=== PATIENT | female | born 1960 | race Caucasian/White ===

== ENCOUNTER 2017-08-19 12:49 | Inpatient (IN) | payer MEDICARE, MEDICAID ==
[~2017-08-19] VITALS: Ht 157.5 cm; Wt 72.6 kg
[~2017-08-19 12:49] MED LIST: ALTACE10 MG PO; ASA5UEC; ASPIR 8181 MG PO; ATORVASTATIN CA40 MG PO; CARVEDILOL12.5 MG PO; CEFUROXIME500 MG PO; COREG25 MG PO; DEPAKOTE ER500 MG PO; EFFIENT10 MG PO; FIORICET 50-321 EACH; FOLIC ACID1 MG PO; HEADACHE MEDICATION; HYDROCHLOROTHIA25 M1 PO; I COOL PO; IBUPROFEN 800800 M1 PO; KLOR-CON 1010 MEQ; LASIX 20 MG TAB20 MG PO; NICOTINE TRANSD21 M1; NITROSTAT0.4 M1 SL; NORCO 5-325 TA1 EACH PO; NORVASC 5 MG TAB5 MG; PAXIL20 MG; PLAVIX 75 MG TA75 M1 PO; PLAVIX 75 MG TA75 MG; THIAMINE HCL100 MG PO; TRAZODONE HCL100 MG; TRAZODONE HCL50 MG PO; TRINATE TABLET1 TAB PO; TYLENOL325 MG PO; VERAPAMIL HCL40 MG; ZANTAC 150MG T150 MG PO; ZESTRIL20 MG; ZOLOFT50 MG PO
[2017-08-19 12:58] VITALS: BP 232/147
[2017-08-19] MEDS ORDERED: MAGOX 400400 MG PO (13:04)
[2017-08-19 13:34] LABS: HEMATOCRIT 53.2 % (37.0-47.0); HEMOGLOBIN 18.1 gm/dL (12.0-15.0); MCH 30.2 pg (26.0-34.0); MPV 8.2 fl. (7.2-11.1); NUCLEATED RBCS 0 /100WBC; PLATELET COUNT* 249 thou/uL (150-400); RBC 5.97 mil/uL (4.20-5.00); RDW-CV 14.1 % (10.5-14.5); WBC 13.4 thou/uL (4.0-11.0)
[2017-08-19 13:59] LABS: ABSOLUTE LYMPHOCYTES 1.5 thou/uL (0.8-5.3); ABSOLUTE MONOCYTES 0.9 thou/uL (0.0-1.2); ATYPICAL LYMPHS 3 %; PLATELET ESTIMATE ADEQUATE
[2017-08-19 14:07] LABS: URINE BLOOD 3+ (Negative); URINE CLARITY CLEAR; URINE COLOR YELLOW; URINE GLUCOSE-RANDOM NEGATIVE (Negative); URINE LEUKOCYTES-REFLEX TRACE (Negative); URINE NITRITE-REFLEX NEGATIVE (Negative); URINE PROTEIN 3+ (Negative); URINE SPECIFIC GRAVITY >= 1.030 (1.005-1.030); URINE UROBILINOGEN 0.2 E.U./dl (0.2-1.0)
[2017-08-19 14:12] LABS: APTT 35.5 Seconds (25.0-31.3); INR 1.1; PROTIME 10.5 Seconds (9.20-11.50)
[2017-08-19 14:12] LABS: ICTOTEST (BILI CONFIRMATORY) Negative (Negative); URINE BILIRUBIN 2+ (Negative); URINE KETONES 3+ (Negative); URINE REDUCING SUBSTANCE NEGATIVE (Negative)
[2017-08-19 14:19] LABS: AMP/METHAMP Negative (Negative); BARBITURATES Negative (Negative); BENZODIAZEPINES Negative (Negative); COCAINE Negative (Negative); METHADONE Negative (Negative); OPIATES Negative (Negative); PCP Negative (Negative); THC Negative (Negative)
[2017-08-19 14:20] LABS: SQUAMOUS >10 Many /LPF (0-3)
[2017-08-19 14:22] LABS: CRYSTALS None Seen /LPF (None Seen); HYALINE CASTS 0-3 Few /LPF (None Seen); MUCUS 0-3 Light strn/LPF (None Seen); URINE RBC 3-10 Few /HPF (0-2); URINE WBC-REFLEX 6-15 Few /HPF (0-5)
[2017-08-19 14:25] LABS: ANION GAP 12 mmol/L (7-16); BUN 8 mg/dL (7-18); CALCIUM 9.6 mg/dL (8.5-10.1); CHLORIDE 83 mmol/L (98-107); CO2 28 mmol/L (21-32); CREATININE 0.7 mg/dL (0.6-1.3); GLUCOSE 177 mg/dL (70-99); POTASSIUM 3.4 mmol/L (3.5-5.1); SODIUM 123 mmol/L (136-145)
[2017-08-19 14:37] LABS: ALBUMIN 3.8 g/dL (3.4-5.0); ALKALINE PHOSPHATASE 203 U/L (46-116); LIPASE 1036 U/L (73-393); NT-PRO BRAIN NAT PEPTIDE 4263 pg/mL (<300); SGOT 58 U/L (15-37); SGPT 55 U/L (30-65); TOTAL BILIRUBIN 1.6 mg/dL (<0.1-1.0); TOTAL PROTEIN 8.4 g/dL (6.4-8.2); TROPONIN-I LEVEL <0.06 ng/mL (<0.06)
[2017-08-19 16:58] VITALS: BP 141/83
[2017-08-19 17:18] VITALS: BP 158/90
--- NOTE | 2017-08-19 17:41 | NUR ---
PT ORIENTED TO ROOM AND UNIT. WILL CONTINUE TO ASSESS.
--- NOTE | 2017-08-19 18:57 | NUR ---
BEDSIDE REPORT GIVEN TO ISRAEL HU.
[2017-08-19 20:00] VITALS: BP 170/84
[2017-08-20] VITALS (11 sets, daily range): BP systolic 148–210; BP diastolic 70–125
[2017-08-20 04:30] LABS: MCH 29.9 pg (26.0-34.0); MCHC 33.9 g/dL (28.0-37.0); MCV 88.2 fL (80.0-100.0); MPV 8.7 fl. (7.2-11.1); RBC 5.1 mil/uL (4.20-5.00); WBC 14.3 thou/uL (4.0-11.0)
[2017-08-20 04:33] LABS: HEMOGLOBIN 15.3 gm/dL (12.0-15.0)
[2017-08-20 04:44] LABS: CALCIUM 8.8 mg/dL (8.5-10.1); CREATININE 0.6 mg/dL (0.6-1.3); MAGNESIUM 1.6 mg/dL (1.8-2.4); TOTAL BILIRUBIN 1.3 mg/dL (<0.1-1.0); TOTAL PROTEIN 7.1 g/dL (6.4-8.2)
--- NOTE | 2017-08-20 07:16 | NUR ---
PATIENT REQUESTING IV PAIN MEDS EVERY 3 HOURS, NORCO EVERY 2. ENCOURAGED TO ONLY SIP WATER. K LOW, ATTEMPTED IV BUT BURNED. TOOK 40 MEQ PO. GI CONSULT THIS AM.
--- NOTE | 2017-08-20 11:44 | NUR ---
PT REFUSING IV POTASSIUM STATS THAT IT IS TO PAINFUL TO GO THROUGH IV. REQUESTING PO POTASSIUM REPLACEMENT. INFORM DR. GAMBLE.
--- NOTE | 2017-08-20 13:23 | EKG ---
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: : 1960 Requested By: Cathi Santillan Order Number: [id number] Mae MD: Xavier Smyth Measurements Intervals [place] Rate: 115 P: 57 IA: 121 QRS: -16 QRSD: 92 T: 82 QT: 360 QTc: 498 Interpretive Statements Sinus tachycardia Probable left atrial enlargement Abnormal R-wave progression, early transition Left ventricular hypertrophy Cannot rule out anterior infarct age indeterminate Compared to ECG 09/21/2016 19:48:11 Left ventricular hypertrophy now present Q waves now present Sinus rhythm no longer present Electronically Signed On 08-20-2017 13:23:42 CDT by Xavier Smyth [email or web address] <ELECTRONICALLY SIGNED> By: Xavier Smyth MD, FACC 08/20/17 1323 1256 1256 Xavier Smyth MD, FACC /EPI
--- NOTE | 2017-08-20 17:52 | NUR ---
START 24 HOUR UNRINE COLLECTION AT 1439 TODAY. PT MISSED HAT FIRST TIEM SHE TRIED USWING.
--- NOTE | 2017-08-20 18:21 | NUR ---
PT HAVING HIGH BLOOD PRESSURE WHEN NAUSEATED AND IN PAIN FROM PANCREATITIS. HOWEVER AFTER PATIENT IS TREATED FOR PAIN AND NAUSEA SBP COMES DOWN TO THE 140S. ADDED LISINOPRIL PO AND CATAPRESS TRANSDERMAL PATCH TO HELP CONTROL BP. PT'S MOTHER STATED TO ME THAT SHE THAT PT MAY HAVE STARTED DRINKING AGAIN WHILE SHE LIVES WITH HER AND THAT SHE IS VERY SECRETIVE ABOUT IT. INFORM MOTHER THAT I COULD NOT GIVE HER ANY INFORMATION ABOUT THE PATIENT WITHOUT THE PATIENT'S CONSENT. WILL CONTINUE TO ASSESS.
--- NOTE | 2017-08-20 18:49 | NUR ---
TALKED TO DR. EDWARD ABOUT PT'S EVELVATED BLOOD PRESSURE AND HE HAS CONCERN FOR DROPPING PT'S BLOOD PRESSURE ALL AT ONE. INSTRUCTED TO GIVE PT ATIVAN AND START CIWA EVEN THOUGH PT STATES THAT SHE HAS NOT HAD A DRINK IN SEVERAL WEEKS. WILL GIVE ATIVAN PER DR. EDWARD INSTRUCTION.
[2017-08-20 19:26] LABS: CALCIUM 8.5 mg/dL (8.5-10.1); CREATININE 0.6 mg/dL (0.6-1.3); POTASSIUM 4.2 mmol/L (3.5-5.1)
--- NOTE | 2017-08-20 20:00 | NUR ---
RECIEVED REPORT AND ASSUMED CARE OF PATIENT AT 1930. 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 ASSESSMENT AND VITALS COMPLETED CHARTED, BLOOD PRESSURE ELEVATED IT HAS BEEN THROUGHOUT THE DAY. PATIENT HAS BP MEDICATIONS TO BE ADMINISTERED PER JUN. PATIENT HAS C/O PAIN RATED 8-10/10. MEDS PER MAR. GOAL IS BLOOD PRESSURE AND PAIN MANAGEMENT. CALL LIGHT WITHIN REACH
[2017-08-21] VITALS (8 sets, daily range): BP systolic 126–191; BP diastolic 78–105
[2017-08-21 03:14] LABS: HEMATOCRIT 42.4 % (37.0-47.0); HEMOGLOBIN 14.4 gm/dL (12.0-15.0); MCH 30.4 pg (26.0-34.0); MCHC 33.9 g/dL (28.0-37.0); MCV 89.5 fL (80.0-100.0); MPV 8.5 fl. (7.2-11.1); RBC 4.73 mil/uL (4.20-5.00); WBC 13.7 thou/uL (4.0-11.0)
[2017-08-21 03:33] LABS: CALCIUM 8.3 mg/dL (8.5-10.1); CREATININE 0.5 mg/dL (0.6-1.3); MAGNESIUM 1.5 mg/dL (1.8-2.4); POTASSIUM 3.9 mmol/L (3.5-5.1)
--- NOTE | 2017-08-21 05:21 | NUR ---
PATIENT NOT PROGRESSING TOWARDS GOALS: SODIUM IS STILL LOW AT 119, PHYSICIAN NOTIFIED AND ORDERS OBTAINED. 24 HOUR URINE COLLECTION STILL IN PLACE-ENDING AT 1430 TODAY (08/21). PATIENT'S BLOOD PRESSURE NOT WNL THROUGHOUT SHIFT DESPITE JASON AND PRN BLOOD PRESSURE MEDICATIONS. CIWA'S COMPLETED Q4H, IMPROVEMENT NOTED THROUGHOUT SHIFT WITH JASON LORAZEPAM. PATIENT HAD INCONTINENT EPISODE OF URINE THIS AM. BED BATH PROVIDED DUE TO PATIENT'S UNSTEADINESS. HOURLY ROUNDING OBSERVED. CALL LIGHT WITHIN REACH
[2017-08-21 08:24] LABS: CREATININE 0.4 mg/dL (0.6-1.3); POTASSIUM 3.9 mmol/L (3.5-5.1)
--- NOTE | 2017-08-21 12:00 | NUR ---
ATTEMPTED TO MEET WITH PT, SHE WAS SLEEPING. MOM AT BEDSIDE. PT KNOWN TO CM FROM PREVIOUS ADMITS. MOM STATED PT HAD DOING WELL AT HOME UNTIL 'THIS'. PT STILL LIVING WITH MOM. WILL SEE PT LATER WHEN AWAKE
[2017-08-21 13:10] LABS: CORTISOL AM 29.9 ug/dL (6.2-19.4)
--- NOTE | 2017-08-21 14:00 | NUR ---
VSS, ASSUMED CARE OF PT IN THE AM, ASSESSMENT PERFORMED AND CHARTED, FALL PRECAUTIONS IN PLACE AND CALL LIGHT IN REACH, PT IS IN BED SLEEPING TRACING SR/ST ON THE MONITOR SAO2 IS 96% ON RA AND SHE IS CONFUSED AND CAN BE IMPULSIVE AT TIME, PT IS UP WITH STAND BY, PT DENIES ANY PAIN AND HER GOAL IS TO IMPROVE NA+ LABS AND IMPROVE MENTATION, WILL FOLLOW WITH PLAN OF CARE.
[2017-08-21 14:11] LABS: HEPATITIS B SURFACE AG Negative (Negative)
--- NOTE | 2017-08-21 14:43 | 2DMMODE ---
[place] [address] 2 D/M-MODE ECHOCARDIOGRAM Name: JAK MCCARTNEY Room: [address] IN .R.#: [id number] Admission: 08/19/17 Attend Phys: Kang Benjamin Discharge: Date of : 64 Date of Service: 08/21/17 1443 Report #: [id number] THIS REPORT FOR: //name// APPROVED REPORT Study performed: 08/21/2017 11:08:11 EXAM: Comprehensive 2D, Doppler, and color-flow Echocardiogram Patient Location: Bedside BSA: 1.68 HR: 98 bpm BP: 126/80 mmHg Other Information Study Quality: Technically Limited Technically limited study due to uncooperative patient. Indications Chest Pain 2D Dimensions IVSd: 9.94 (7-11mm) LVOT Diam: 21.37 (18-24mm) LVDd: 46.38 mm PWd: 9.25 (7-11mm) Ascending Ao: 38.39 (22-36mm) LVDs: 32.63 (25-40mm) Aortic Root: 29.35 mm Volumes Left Atrial Volume (Systole) LA ESV Index: 31.20 mL/m2 Aortic Valve AoV Peak Kulwinder.: 1.15 m/s AO Peak Gr.: 5.32 mmHg LVOT Max P.83 mmHg AO Mean Gr.: 3.12 mmHg LVOT Mean P.31 mmHg LVOT Max V: 0.84 m/s AO V2 VTI: 16.83 cm LVOT Mean V: 0.52 m/s MELISSA (VTI): 3.35 cm2 LVOT V1 VTI: 15.74 cm Mitral Valve E/A Ratio: 0.86 MV Decel. Time: 169.90 ms MV E Max Kulwinder.: 0.86 m/[place] [address] 2 D/M-MODE ECHOCARDIOGRAM Name: JAK MCCARTNEY Room: [address] IN .R.#: [id number] Admission: 08/19/17 Attend Phys: Kang Benjamin Discharge: Date of : 64 Date of Service: 08/21/17 1443 Report #: [id number] MV PHT: 49.27 ms MVA (PHT): 4.47 cm2 TDI E/Lateral E': 14.33 E/Medial E': 12.29 Medial E' Kulwinder.: 0.07 m/s Lateral E' Kulwinder.: 0.06 m/s Pulmonary Valve PV Peak Kulwinder.: 1.04 m/s PV Peak Gr.: 4.33 mmHg Tricuspid Valve RAP Estimate: 5.00 mmHg TR Peak Gr.: 50.02 mmHg RVSP: 55.02 mmHg PA Pressure: 55.02 mmHg Left Ventricle The left ventricle is normal size. moderate hypokinesis noted of the distal anteroapical wall There is normal left ventricular wall thickness. Left ventricular systolic function is mildly decreased. A false tendon is noted. LVEF is 45-50%. Grade I - abnormal relaxation pattern. Right Ventricle The right ventricle is normal size. The right ventricular systolic function is normal. Atria Left atrium is mildly dilated. The right atrium size is normal. Aortic Valve The aortic valve is normal in structure. No aortic regurgitation is present. There is no aortic valvular stenosis. Mitral Valve The mitral valve is mildly thickened. Mild mitral regurgitation. No evidence of mitral valve stenosis. Tricuspid Valve The tricuspid valve is normal in structure. Trace to mild tricuspid regurgitation. estimated pa pressure 55 mm Hg Pulmonic Valve Pulmonic valve is not well visualized. Trace pulmonic [place] [address] 2 D/M-MODE ECHOCARDIOGRAM Name: JAK MCCARTNEY Room: [address]#: [id number] Admission: 08/19/17 Attend Phys: Kang Benjamin Discharge: Date of : 64 Date of Service: 08/21/17 1443 Report #: [id number] Great Vessels Aortic root is mildly dilated. IVC is not well visualized. Pericardium Trace pericardial effusion versus prominent fat pad. <Conclusion> moderate hypokinesis noted of the distal anteroapical wall LVEF is 45-50%. Left atrium is mildly dilated. Mild mitral regurgitation. Trace to mild tricuspid regurgitation. estimated pa pressure 55 mm Hg <ELECTRONICALLY SIGNED> By: Dale Morrison MD, FACC 08/21/17 1443 1443 1443 Dale Morrison MD, FACC /INF
[2017-08-21 16:02] LABS: TOTAL VOLUME 1150 mL
[2017-08-21 16:03] LABS: COLLECTION DURATION 24 Hours
--- NOTE | 2017-08-21 17:47 | CARDNUC ---
[place] [address] CARDIAC NUCLEAR IMAGING REPORT Name: JAK MCCARTNEY Room: [address] IN [facility]#: [id number] Admission: 08/19/17 Attend Phys: Kang Benjamin Discharge: Date of : 64 Date of Service: 08/21/17 1746 Report #: [id number] THIS REPORT FOR: //name// APPROVED REPORT Study performed: 08/20/2017 12:45:00 Exam: Nuclear Stress Test Indication: Chest pain Patient Location: In-Patient Room #: 232 Stress Tech: Danyelle Chavez Stress Nurse: Fidelia Gamez RN Ht: 5 ft 2 in Wt: 148 lbs BSA: 1.68 m2 BMI: 27.06 Medical History Medical History: CAD s/p AR, CAD s/p stent, Stroke/TIA, HTN, Hyperlipidemia, Smoking Medications: prasugrel, enoxaparin, atorvastatin, carvedilol, clonidine, hydralazine, labetalol, lisinopril, asa Allergies: No known drug allergies Cardiac Risk Factors: Age, Current Smoker, HTN, Hyperlipidemia, PVD Previous Cardiac Procedures: Myocardial infarction, PCI Exercise History: Sedentary Meds Held (24 hrs): labetalol Stress Test Details Stress Test: Pharmacologic stress testing performed using 0.4 mg of regadenoson per 5 mL given IV over 10 seconds. Reason for pharmacologic stress test: physical limitation. HR Resting HR: 98 bpm Max Heart Rate (APMHR): 165 bpm Max HR Achieved: 122 bpm Target HR (85% APMHR): 140 bpm % of APMHR: 73 Recovery HR: 110 bpm BP Resting BP: 151/99 mmHg Max BP: 111/69 [place] [address] CARDIAC NUCLEAR IMAGING REPORT Name: JAK MCCARTNEY Room: [address] IN [facility].#: [id number] Admission: 08/19/17 Attend Phys: Kang Benjamin Discharge: Date of : 64 Date of Service: 08/21/17 1746 Report #: [id number] Resting ECG: Sinus Rhythm Stress ECG: Sinus Tachycardia ST Change: Upsloping ST depression Maximum ST Deviation: 1 mm Arrhythmia: None Recovery ECG: Sinus Rhythm Recovery ST Change: Upsloping ST depression Recovery ST Deviation: 1 mm Recovery Arrhythmia: None Clinical Reason for Termination: Completed protocol Stress Symptoms: Dyspnea Exercise duration: 0 min sec Exercise capacity: 1.0 METs The patient had no chest discomfort with Lexiscan infusion. Nurse Comments Patient stated she got light headed and slightly SOB post lexiscan injection, resolved in recovery. Stress ECG Conclusion The baseline 12-lead elect cardiac gram showed sinus rhythm without significant ST or T wave abnormality. EKGs obtained during and post Lexiscan infusion show sinus rhythm and sinus tachycardia with [address] segment depression noted in the anterolateral leads. No stress-induced arrhythmias. NM EXAM: Myocardial Perfusion REST/STRESS Imaging Protocol: Rest Tc-99m/Stress Tc-99m 1 day Resting Data Rest SPECT myocardial perfusion imaging was performed in supine position 45 minutes following the intravenous injection of 11.6 mCi of Tc-99m Sestamibi. Time of rest injection: 809 Date: 08/21/2017 The images were gated to evaluate regional wall motion and calculate left ventricular ejection fraction. Administration Route: IV Administration Site: Left AC Pharmacologic Stress Pharmacologic stress test was performed by injecting Regadenoson 0.4 mg IV push followed by the intravenous injection of 35.6 mCi of Tc-99m Sestamibi. Time of stress injection: 1000 Date: 08/21/2017 [place] [address] CARDIAC NUCLEAR IMAGING REPORT Name: JAK MCCARTNEY Room: [address]#: [id number] Admission: 08/19/17 Attend Phys: Kang Benjamin Discharge: Date of : 64 Date of Service: 08/21/17 1746 Report #: [id number] Administration Route: IV Administration Site: Left AC Gated Stress SPECT was performed 45 minutes after stress injection. The images were gated to evaluate regional wall motion and calculate left ventricular ejection fraction. Study Quality Study: Good Artifact: No artifact Study Data At rest, the left ventricular ejection fraction was 45%.. Post stress, the left ventricular ejection was 44%.. Perfusion Myocardial perfusion images obtained at rest show a moderate size moderate to severe intensity defect involving the distal anterior and anteroapical wall. Perfusion images obtained post Lexiscan stress show a moderate sized severe intensity defect involving the mid to distal anterior wall and anteroapical wall. Findings are consistent with anteroapical infarct with moderate zone of taye-infarct ischemia. Wall Motion Gated images show akinesis of the mid to distal anterior anteroseptal and apical sims. Nuclear Conclusion ECG Findings: equivocal Clinical Findings: negative for ischemia Nuclear Findings: positive for ischemia Exercise Capacity: not assessed Left Ventricular Function: abnormal Risk Study: high Myocardial perfusion images show evidence of prior anteroapical infarct with a moderate region of taye-infarct ischemia. Left ventricular systolic function appears to be moderately decreased. This is a high risk study. <Conclusion> The baseline 12-lead elect cardiac gram showed sinus rhythm without significant ST or T wave abnormality. EKGs obtained during and post Lexiscan infusion show sinus rhythm and sinus tachycardia with 1 [place] [address] CARDIAC NUCLEAR IMAGING REPORT Name: JAK MCCARTNEY Room: [address] IN [facility].#: [id number] Admission: 08/19/17 Attend Phys: Kang Benjamin Discharge: Date of : 64 Date of Service: 08/21/17 1746 Report #: [id number] segment depression noted in the anterolateral leads. No stress-induced arrhythmias. <ELECTRONICALLY SIGNED> By: Xavier Smyth MD, FACC 08/21/17 1746 [id number] Xavier Smyth MD, FACC /INF
--- NOTE | 2017-08-21 22:31 | NUR ---
RECIEVED REPORT AND ASSUMED CARE OF PATIENT AT 1930. WOOL WASHER IN PLACE TRACING SR. ASSESSMENT AND VITALS COMPLETED CHARTED, VSS. PATIENT LETHARGIC, SLEEPING UPON ASSESSMENT. PATIENT IS CONFUSED AT TIMES. CIWA COMPLETED, REFER TO MAR. LORAZEPAM HELD DUE TO PATIENT'S MENTATION. PATIENT DENIES PAIN. GOAL IS PAIN CONTROL AND IMPROVEMENT OF MENTATION. WILL CONTINUE 500CC FLUID RESTRICTION AND INFUSION OF IVF TO IMPROVE NA+. CALL LIGHT WITHIN REACH
[2017-08-22 03:43] VITALS: BP 146/71
[2017-08-22 04:09] LABS: URINE SODIUM 105 (39-258); URINE SODIUM-mEq/L 91 mmol/L (Not Estab.)
--- NOTE | 2017-08-22 04:10 | NUR ---
PATIENT PARTIALLY PROGRESSING TOWARDS GOALS FOR THIS SHIFT: MENTATION UNIMPROVED DESPITE HOLDING PATIENT'S LORAZEPAM. PATIENT REMAINS LETHARGIC AND CONFUSED AT TIMES. PATIENT INCONTINENT AT TIMES WELL. PATIENT DENIES PAIN OR DISCOMFORT. AM LABS PENDING AT THIS TIME. PATIENT COMPLIANT WITH 500CC FLUID RESTRICTION. HOURLY ROUNDING OBSERVED. CALL LIGHT WITHIN REACH
[2017-08-22 04:44] LABS: HEMATOCRIT 35.6 % (37.0-47.0); MCH 30.4 pg (26.0-34.0); MCHC 34.2 g/dL (28.0-37.0); MCV 88.9 fL (80.0-100.0); MPV 8.8 fl. (7.2-11.1); RBC 4.01 mil/uL (4.20-5.00); RDW-CV 14.5 % (10.5-14.5); WBC 6.9 thou/uL (4.0-11.0)
[2017-08-22 04:52] LABS: HEMOGLOBIN 12.2 gm/dL (12.0-15.0)
[2017-08-22 05:02] LABS: ALBUMIN 2.2 g/dL (3.4-5.0); CALCIUM 7.8 mg/dL (8.5-10.1); CREATININE 0.4 mg/dL (0.6-1.3); TOTAL BILIRUBIN 0.6 mg/dL (<0.1-1.0)
[2017-08-22 08:30] VITALS: BP 147/90
--- NOTE | 2017-08-22 09:49 | CON ---
[facility] [address] [place] [address] CONSULTATION Name: JAK MCCARTNEY Room: [address] IN .R.#: [id number] Admission: 08/19/17 Attend Phys: Kang Lopez, Discharge: Date of : 64 Report #: [id number] THIS REPORT FOR: //name// CC: Dale Morrison MD [facility] PAT Lopez DICTATED BY: Armen Lisa MD DATE OF SERVICE: 08/20/2017 INDICATION: Chest pain and hypertension. HISTORY OF PRESENT ILLNESS: The patient is a 57-year-old white female with a history of coronary artery disease. She has had intervention on multiple occasions. Most recently in 11/2015, she had subtotal occlusion of the stent to her LAD with repeat intervention. She has stents in her LAD and right coronary artery. By noninvasive echocardiogram, her EF is 55%. She has no history of heart failure. Her cardiac risk factors include hypertension, dyslipidemia, and tobacco use. She was seen in the emergency room with complaints of nausea, vomiting, and discomfort, both in the abdomen and chest for several days in a row. Her initial troponin was less than 0.06. Subsequent troponin was less than 0.06. A 12-lead EKG shows sinus rhythm with ST elevation in the anterior leads, felt to be attributed to left ventricular hypertrophy. EKG did not appear significantly changed from primary EKGs. She has a history of a stroke in 08/2016, at which time she was found to have an occluded right middle cerebral artery. On the study. this apparently was chronic. PAST MEDICAL HISTORY: 1. Coronary artery disease with percutaneous coronary intervention to both, right coronary and left anterior descending coronary arteries. 2. History of alcohol-induced chronic pancreatitis. 3. Hypertension. 4. History of ischemic right middle cerebral artery stroke. 5. History of alcohol abuse. 6. Hyperlipidemia. 7. Hyponatremia. 8. Peripheral arterial disease. 9. Tobacco abuse. PAST SURGICAL HISTORY: [place] [address] CONSULTATION Name: JAK MCCARTNEY Room: [address] IN [facility].#: [id number] Admission: 08/19/17 Attend Phys: Kang Lopez, Discharge: Date of : 64 Report #: [id number] 1. Percutaneous coronary intervention. 2. Hysterectomy. FAMILY HISTORY: Noncontributory. SOCIAL HISTORY: The patient smokes a pack of cigarettes daily. She reports alcohol use in the past, none presently. PHYSICAL EXAMINATION: VITAL SIGNS: Blood pressure 183/107, pulse 103. GENERAL: This is white female who appears in slight discomfort. She is somewhat flushed. HEENT: Extraocular muscles intact. Mucous membranes are moist. NECK: Shows no jugular venous distention. I do not appreciate carotid bruit. CHEST: Reveals breath sounds to be decreased throughout without wheezes or rales. CARDIAC: Regular rhythm with gallop. I do not appreciate a murmur. ABDOMEN: Reveals normal bowel sounds. The abdomen is soft and tender without rebound. EXTREMITIES: Shows no edema. Peripheral pulses palpable. SKIN: Warm and dry. DATA: A 12-lead EKG shows sinus tachycardia with Q waves in the anteroseptal leads and persistent ST elevation in leads V1, V2, and V3. Troponin less than 0.06 on two separate occasions. Chest x-ray shows no acute cardiopulmonary abnormality. IMPRESSIONS AND RECOMMENDATIONS: 1. Atypical prolonged chest pain. The patient's enzymes thus far are unremarkable. I do not believe this represents an acute coronary syndrome. We would continue aspirin and Effient as outlined above. 2. Hypertension. The patient's blood pressure remains elevated. At this point in time, I would add carvedilol twice daily and titrate as needed. 3. Chest pain, etiology not clear. I would recommend stress testing. 4. History of pericardial effusion in the past. Repeating echocardiogram at this time. 5. Remote history of stroke, presently stable. 6. Hyperlipidemia. Continue current statin agent. 7. History of tobacco abuse. Recommend cessation. <ELECTRONICALLY SIGNED> By: Xavier Smyth MD, FACC 08/22/17 0949 [id number] Smyth MD, FACC /nt
--- NOTE | 2017-08-22 11:51 | NUR ---
ASSUMED CARE OF PT AT 0730. PT LYING IN BED, SLEEPING, LETHARGIC AND FLAT. PT A&0X4 , FORGETFUL AND CONFUSED AT TIMES. CIWA COMPLETED Q4H. REFER TO CHARTING. PT SCORED 2 THIS AM FOR MINOR HEADACHE. AM ATIVAN HELD. 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 ON RA SAT 95%. DENIES ANY SHORTNESS OF BREATH AT THIS TIME. PT SODIUM 125 TODAY- PT CONTINUES TO RECEIVE IVF AT 100ML/HR AND FLUID RESTRICTION IN PLACE. PT POTASSIUM THIS AM-3.0, POTASSIUM GIVEN PER JUN. PT ON CLEAR LIQUID DIET AT THIS TIME. PT UP WITH 1 SBA TO BATHROOM. PT GOAL FOR TODAY IS TO INCREASE ALERTNESS AND AWAKENESS, USE NON PHARMACOLOGICAL APPROACH FOR PAIN MGMT, REPLACE POTASSIUM PER ELECTROLYTE PROTOCOL, MONITOR CIWA AND MONITOR SODIUM LEVEL. AM ASSESSMENT CHARTED. MEDICATIONS PER JUN. PT REPOSITIONS SELF. HOURLY ROUNDING OBSERVED. BED IN LOW POSITION. BED ALARM IN PLACE. FALL PRECAUTIONS IN PLACE. CALL LIGHT WITHIN REACH. WILL CONTINUE PLAN OF CARE.
[2017-08-22 12:42] VITALS: BP 147/76
--- NOTE | 2017-08-22 14:07 | NUR ---
ATTEPTED TO MEET WITH PT AGAIN, SHE IS STILL VERY DROWSY AND NOT WANTING TO TALK. WILL TRY TOMORROW
--- NOTE | 2017-08-22 16:56 | NUR ---
NO ACUTE CHANGES THROUGHOUT SHIFT. REFER TO CHARTING. PT MORE ALERT AND AWAKE THROUGHOUT SHIFT. PT COMPLAINED OF PAIN TO HEAD AND BACK THIS AFTERNOON-TREATED WITH PRN HYDROCODONE WITH PARTIAL RELIEF. PT FAMILY AT BEDSIDE THROUGHOUT SHIFT. CIWA Q4H COMPLETED. PT SCORING BETWEEN 2-3 DUE TO HEADACHE. POTASSIUM BEING REPLACED PER JUN. IVF. FLUID RESTRICTION IN PLACE. MIRALAX GIVEN PER GI ORDERS UNKNOWN LAST BM. PT CONTINUES TO BE A&0X4, FORGERFUL AT TIMES. CONTINUES TO TRACE SR ON THE PARTS PULLER. ON RA SAT UPPER 90'S. DENIES ANY SHORTNESS OF BREATH. PT UP SBA TO BATHROOM- UNSTEADY AT TIMES. CARDIOLOGY SEEN PT TODAY AND SIGNED OFF. MEDICATIONS PER JUN. PT REPOSITIONS SELF. HOURLY ROUNDING OBSERVED. BED IN LOW POSITION. BED ALARM IN PLACE. FALL PRECAUTIONS IN PLACE. CALL LIGHT WITHIN REACH. WILL CONTINUE PLAN OF CARE.
[2017-08-22 17:14] VITALS: BP 147/83
[2017-08-22 20:00] VITALS: BP 150/87
[2017-08-22 23:55] VITALS: BP 136/81
[2017-08-23] VITALS (7 sets, daily range): BP systolic 129–158; BP diastolic 70–93
--- NOTE | 2017-08-23 03:25 | NUR ---
PATIENT RESTED IN BED, NO ACUTE CHANGES. PATIENT COMPLAINED OF PAIN OF HIP, ABDOMINAL, HEAD, CHEST. EKG DONE, SINUS, DOCTOR RUDOLPH NOTIFED OF CHEST PAIN, NO NEW ORDERS. PAIN WAS RETREATED WITH NORCO, PATIENT DID NOT SHOW SIGNS OF DISTRESS. PATIENT A AND O TIMES 4. FALL PRECAUTIONS IN PLACE, BED ALARM ON, CALL LIGHT WITHIN A REACH, HOURLY ROUNDING OBSERVED. VITALS UNDER CONTROL.
[2017-08-23 06:54] LABS: CREATININE 0.5 mg/dL (0.6-1.3); POTASSIUM 3.8 mmol/L (3.5-5.1)
--- NOTE | 2017-08-23 06:59 | NUR ---
DOCTOR GALDAMEZ NOTIFED OF PATIENT CHEST PAIN, POST PAIN MED. THE DOCTOR ORDER, A TROP AND NITRO PRN.
--- NOTE | 2017-08-23 11:10 | EKG ---
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1960 Requested By: Kang Lopez Order Number: [id number] Mae MD: Dale Morrison Measurements Intervals [place] Rate: 81 P: 2 MD: 122 QRS: -19 QRSD: 91 T: 74 QT: 407 QTc: 473 Interpretive Statements Sinus rhythm Ventricular premature complex Probable left atrial enlargement Left ventricular hypertrophy Anterior infarct, old Baseline wander in lead(s) I,aVL,V5,V6 Compared to ECG 08/19/2017 12:56:52 Ventricular premature complex(es) now present Sinus tachycardia no longer present Myocardial infarct finding still present Electronically Signed On 08-23-2017 11:10:21 CDT by Dale Morrison [email or web address] <ELECTRONICALLY SIGNED> By: Dale Morrison MD, [facility] 08/23/17 1110 53 53 Dale Morrison MD, [facility] /EPI
--- NOTE | 2017-08-23 11:43 | NUR ---
CONTINUE TO FOLLOW, MET WITH PT. SHE IS STILL VERY DROWSY. STATED SHE HAD HAD A RELASPE WITH 'DRINKING.' SHE STATED SHE WAS ABLE TO QUIT ON HER OWN AFTER LAST HOSPTIAL STAY AND HOPES TO DO THE SAME. PT OPEN TO RESOURCES, WILL PROVIDE AND DISCUSS WHEN PT MORE ALERT.
--- NOTE | 2017-08-23 18:38 | NUR ---
ASSUMED PT CARE AT 0730, FULL ASSESMENT DONE CHARTED. PT VERY DROWSY THIS AM, C/O PAIN IN BACK. PAIN MEDS GIVEN PER JUN. PT TOLERATED FULL LIQUIDS FOR LUNCH WELL, PT ADVANCED TO REG DIET FOR DINNER. HAD LOOSE STOOL AFTER RECIEVING MIRALAX TODAY. PTS VSS, SR ON THE MONITOR. FALL PRECATUIONS IN PLACE. CALL LIGHT IN REACH. WILL CONTIUE WITH PLAN OF CARE
[2017-08-24 04:27] VITALS: BP 159/96
--- NOTE | 2017-08-24 05:36 | NUR ---
PATIENT RESTED IN BED. PATIENT SHOW SIGNS OF NAUSEA, PATIENT VOMIT SMALL AMOUNT. PATIENT HAD MUTIPLE LOOSE STOOLS, PATIENT IS NPO FOR TESTING. PATIENT IS STABLE, VITALS ARE ALSO STABLE. FALL PRECAUTIONS IN PLACE, BED ALARM ON, CALL LIGHT WITHIN REACH.
--- NOTE | 2017-08-24 05:43 | NUR ---
PATIENT RESTED IN BED, NO ACUTE CHANGES. PATIENT DID NOT SHOW SIGNS OF DISTRESS. FALL PRECAUTIONS IN BED, BED ALARM ON, HOURLY ROUNDING OBSERVED.
[2017-08-24 07:53] VITALS: BP 176/111
--- NOTE | 2017-08-24 09:27 | NUR ---
ASSUMED CARE OF PT THIS AM AROUND 0715- PAYROLL PROFESSIONAL IN PLACE ORDERED, TRACING SR- UPON ASSESSMENT PT NOTED TO BE RESTING IN BED, EYES CLOSED- PT ARROUSABLE BUT GROGGY AT TIMES- A&O X3- CONTINENT OF BOWEL AND BLADDER- ASSIST X1 WITH TRANSFERS- DIMINISHED LUNG SOUNDS NOTED, RESP EVEN AND UN-LABORED- BP ELEVATED THIS AM WITH SCHEDULED LISINOPRIL AND COREG GIVEN INDICATED, O2 SAT 92% ON RA-ABDOMEN SOFT/ROUND/NON-TENDER THIS AM, BS X4 AUADS- PT REPORTS BM THIS AM- IV NOTED TO LEFT WRIST INTACT AND SL- PT UP TO BED SIDE CHAIR THIS AM WITH BREAKFAST, GOOD PO INTAKE NOTED- CIWA Q 4 THIS SHIFT INDICATED, NOTED TO BE 1 THIS AM FOR REPORTS OF ANXIETY PER PT- PT REPORTS THAT SHE FEELS LIKE HER SKIN IS TRYING TO CRAWL OUT- PRN ATIVAN PO GIVEN THIS AM AT 0845- CALL LIGHT AND PERSONAL BELONGINGS WITH IN REACH- HOURLY ROUNDS IN PLACE R/T SAFETY/NEEDS- ALL NEEDS MET AT THIS TIME-WCTM
[2017-08-24 11:56] VITALS: BP 155/96
[2017-08-24 14:16] VITALS: BP 155/96
[2017-08-24] MEDS ORDERED: MIRALAX17 GM PO (14:21)
--- NOTE | 2017-08-24 15:01 | NUR ---
SW provided alcohol and drug resources referral list as well as emotional resources. Pt ready to dc home today; no other dc needs expressed.
--- NOTE | 2017-08-24 15:04 | NUR ---
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
--- NOTE | 2017-08-25 12:58 | NUR ---
PT. DISCHARGED TO HOME PRIOR TO O.T. EVAL. SHE DECLINED O.T. EVAL ON 08/24. PLEASE ORDER FURTHER O.T. SERVICES IF NEEDED.
[2017-08-28 18:06] LABS: URINE CORTISONE 424 ug/L (Undefined); URINE FREE CORTISOL 488 ug/24 hr (0-50)
--- NOTE | 2017-09-01 13:09 | CON ---
[facility] [address] [place] [address] CONSULTATION Name: JAK MCCARTNEY Room: [address]R.#: [id number] Admission: 08/19/17 Attend Phys: Kang Lopez, Discharge: 08/24/17 Date of : 64 Report #: [id number] THIS REPORT FOR: //name// CC: Nicolasa Lopez DATE OF SERVICE: 08/20/2017 REQUESTING PHYSICIAN: Dr. Kang Lopez. REASON FOR CONSULT: Abdominal pain, elevated lipase and transaminitis. HISTORY OF PRESENT ILLNESS: This is a 57-year-old female who is well known to us as she has had hospitalization in the past with alcoholic pancreatitis. The patient presents with diffuse abdominal pain, nausea, and symptoms of vomiting. She reports that she has been abstinent from alcohol for a while, but she relapsed couple of months ago and she drank heavily until 3 weeks ago. She once again stopped drinking. On presentation, she was found to have mild elevation of lipase to 700 to 1036. Her AST was also elevated with AST to ALT ratio of 1.5 to 1. Imaging studies suggest possible gallbladder sludge without any evidence of cholecystitis. The common bile duct is 4-5 mm in size and free of any stones or filling defects. PAST MEDICAL HISTORY: Significant for history of coronary artery disease status post DE, hypertension, dyslipidemia, depression, chronic migraines, hysterectomy, and GERD. ALLERGIES: The patient does not have any known drug allergy. MEDICATIONS: Please refer to hospital [facility]. SOCIAL HISTORY: The patient had a long history of alcoholism and reports that she relapsed and drank again heavily for the month, but she has stopped again for the last 3 weeks. The patient also admits to smoking half pack of cigarettes per day. FAMILY HISTORY: Noncontributory. PHYSICAL EXAMINATION: VITAL SIGNS: Reveals blood pressure of 183/107, respiration is 17, pulse 103, temperature 97.9. LUNGS: Clear. CARDIOVASCULAR: Regular. ABDOMEN: Soft, tender to palpation in all 4 quadrants[place] [address] CONSULTATION Name: JAK MCCARTNEY Room: [address]#: [id number] Admission: 08/19/17 Attend Phys: Kang Lopez, Discharge: 08/24/17 Date of : 64 Report #: [id number]. NEUROLOGIC: The patient is alert and oriented x 3. LABORATORY DATA: Revealed sodium of 121, potassium is 3.0, BUN is 6, chloride 82, creatinine 0.6, glucose 162. Lipase 795, down from 1036. Total bilirubin is 1.3 alkaline phosphatase 167, ALT is 42 and AST is 47. INR 1.1. WBC is 14.3 with hemoglobin of 15.3 and platelet of 203. IMAGING: As discussed above. ASSESSMENT AND PLAN: The patient with history of recurrent alcoholic pancreatitis, who also has electrolyte disturbance and extremely low sodium and potassium chloride. We will go ahead and put her on water restriction of 1200 mL. Also, slowly replace her sodium with the rate of 100 mL an hour with 20 of K. Meanwhile, we will continue monitoring lipase and labs. <ELECTRONICALLY SIGNED> By: Stephanie Meraz MD 09/01/17 1309 1129 [id number] Meraz MD /nt
== END 2017-08-24 15:10 | disposition home or self-care (01) | DRG 438 ==
LOC: M.ERS 12:49 → M.TBA-ER 15:36 → M.2W 15:36
PROVIDERS: Internal Medicine; Personal Emergency Response Attendant; ADMIT Family Medicine
DX: K85.90 Acute pancreatitis without necrosis or infection, unspecified (principal); R65.11 Systemic inflammatory response syndrome (SIRS) of non-infectious origin with acute organ dysfunction; N39.0 Urinary tract infection, site not specified; E87.1 Hypo-osmolality and hyponatremia; E44.0 Moderate protein-calorie malnutrition; I42.9 Cardiomyopathy, unspecified; R63.1 Polydipsia; I16.0 Hypertensive urgency; I25.10 Atherosclerotic heart disease of native coronary artery without angina pectoris; I10 Essential (primary) hypertension; E78.00 Pure hypercholesterolemia, unspecified; F32.9 Major depressive disorder, single episode, unspecified; G43.809 Other migraine, not intractable, without status migrainosus; F17.210 Nicotine dependence, cigarettes, uncomplicated; E78.5 Hyperlipidemia, unspecified; K21.9 Gastro-esophageal reflux disease without esophagitis; I73.9 Peripheral vascular disease, unspecified; E87.6 Hypokalemia; E83.42 Hypomagnesemia; F10.10 Alcohol abuse, uncomplicated; I25.2 Old myocardial infarction; Z90.710 Acquired absence of both cervix and uterus; Z79.899 Other long term (current) drug therapy; Z79.82 Long term (current) use of aspirin; Z86.73 Personal history of transient ischemic attack (TIA), and cerebral infarction without residual deficits; Z68.29 Body mass index [BMI] 29.0-29.9, adult

== ENCOUNTER 2019-04-24 16:34 | Inpatient (IN) | payer MEDICARE, MEDICAID ==
[~2019-04-24] VITALS: Ht 157.5 cm; Wt 47.6 kg
[~2019-04-24 16:34] MED LIST changes: -ATORVASTATIN CA40 MG PO; +LIPITOR40 MG PO; +MAGOX 400400 MG PO; +MIRALAX17 GM PO; +SERTRALINE HCL50 MG PO; -THIAMINE HCL100 MG PO; +VITAMINE B-1100 MG PO; -ZOLOFT50 MG PO
--- NOTE | 2019-04-24 16:50 | NUR ---
RT AT BEDSIDE APPLYING BIPAP TO PT.
--- NOTE | 2019-04-24 16:56 | NUR ---
PT TOLERATING BIPAP WELL.
[2019-04-24 17:26] LABS: ABSOLUTE BASOPHILS 0.1 thou/uL (0.0-0.2); ABSOLUTE LYMPHOCYTES 1.8 thou/uL (0.8-5.3); ABSOLUTE MONOCYTES 1.4 thou/uL (0.0-1.2); ABSOLUTE NEUTROPHILS 5.5 thou/uL (1.6-8.1); BASOPHILS 1.2 %; EOSINOPHILS 0.1 %; HEMATOCRIT 51.8 % (37.0-47.0); HEMOGLOBIN 16.7 gm/dL (12.0-15.0); LYMPHOCYTES 20.2 %; MCH 24.7 pg (26.0-34.0); MCHC 32.2 g/dL (28.0-37.0); MCV 76.8 fL (80.0-100.0); MONOCYTES 16.1 %; MPV 8.2 fl. (7.2-11.1); NUCLEATED RBCS 0 /100WBC; POLYS 62.4 %; RBC 6.74 mil/uL (4.20-5.00); RDW-CV 17.7 % (10.5-14.5); WBC 8.8 thou/uL (4.0-11.0)
[2019-04-24 17:29] LABS: CALCIUM 8.9 mg/dL (8.5-10.1); CREATININE 1.1 mg/dL (0.6-1.3); POTASSIUM 3.6 mmol/L (3.5-5.1)
[2019-04-24 17:39] LABS: ALBUMIN 3.3 g/dL (3.4-5.0); TOTAL BILIRUBIN 2.1 mg/dL (<0.1-1.0); TOTAL PROTEIN 8.6 g/dL (6.4-8.2)
[2019-04-24 17:42] LABS: APTT 26.2 Seconds (25.0-31.3); INR 1.3; PROTIME 13.2 Seconds (9.20-11.50)
[2019-04-24 17:48] LABS: LARGE PLATELETS OCCASIONAL; PLATELET ESTIMATE ADEQUATE
[2019-04-24 17:49] LABS: CLUMPED PLTS FEW; PLATELET COUNT* 282 thou/uL (150-400)
--- NOTE | 2019-04-24 19:02 | NUR ---
REPORT GIVEN TO MAYTE BROWN WHO IS TO ASSUME PT CARE.
[2019-04-24 20:18] LABS: BE -2.6 mmol/L (-2 to +3); PO2 94.9 mmHg (75.0-100.0); pH 7.353 (7.340-7.450)
[2019-04-24 22:15] VITALS: BP 137/84
[2019-04-25] VITALS (74 sets, daily range): BP systolic 119–215; BP diastolic 62–146
[2019-04-25 03:17] LABS: BE -3.8 mmol/L (-2 to +3); PCO2 42.7 mmHg (35.0-45.0); PO2 81.4 mmHg (75.0-100.0)
[2019-04-25 06:03] LABS: GLUCOSE 138 mg/dL (70-99)
--- NOTE | 2019-04-25 06:36 | NUR ---
TOOK OVER CARE OF PATIENT FROM MAYTE GLEZ AT 0130. PATIENT HAS BEEN ON BIPAP ALL SHIFT AND REMAINS AGITATED AND PULLING AT LINES. PATIENT IS ONLY CALM ONCE ATIVAN ORDER IS ADMINISTERED TO THE PATIENT. PATIENT'S BLOOD PRESSURE AND HEART RATE WERE ELEVATED TO DANGEROUS LEVELS. SPOKE WITH CARDIOLOGY AND RECIEVED ORDERS FOR MEDICATIONS, PATIENT'S HEART RATE STILL TACHYCARDIC AND PRESSURE MILDLY HYPERTENSIVE, BUT MUCH IMPROVED. NITROGLYCERIN AND HEPARIN GTT INFUSING PER PROTOCOL AND ORDERS FROM PHYSICIAN. PULMONARY CONSULTED AND PROVIDER SAW PATIENT AT BEDSIDE. PULMONARY WOULD LIKE FOR PATIENT TO UNDERGO THORACENTESIS VIA IR DURING DAYSHIFT. WILL HAVE TO HOLD FOR CARDIOLOGY TO APPROVE HOLDING OR D/C HEPARIN GTT. WCTM.
[2019-04-25 08:18] LABS: ALBUMIN 2.7 g/dL (3.4-5.0); CALCIUM 8.3 mg/dL (8.5-10.1); TOTAL BILIRUBIN 1.6 mg/dL (<0.1-1.0); TOTAL PROTEIN 7.2 g/dL (6.4-8.2)
[2019-04-25 08:19] LABS: POTASSIUM 2.9 mmol/L (3.5-5.1)
[2019-04-25 11:34] LABS: INFLUENZA A ANTIGEN Negative (Negative); INFLUENZA B ANTIGEN Negative (Negative)
--- NOTE | 2019-04-25 12:33 | EKG ---
[place] [address] ELECTROCARDIOGRAM REPORT Name: JAK MCCARTNEY Room: [address] ADM IN .R.#: [id number] Admission: 04/24/19 Attend Phys: Geovany Acharya Discharge: Date of : 64 Report #: [id number] THIS REPORT FOR: //name// [facility] ED Test Date: 2019-04-24 Test Time: 16:44:11 Pat Name: JAK SWARTZ Department: Room: [facility] Gender: F Purchasing Specialist: [facility] : 1960 Requested By: Virgil Albrecht Order Number: [id number] MD: Arnulfo Chaidez Measurements Intervals Union Rate: 136 P: 22 MD: 133 QRS: -24 QRSD: 82 T: 134 QT: 272 QTc: 410 Interpretive Statements Sinus tachycardia Abnormal R-wave progression, early transition Inferior infarct, old Consider anterior infarct Baseline wander in lead(s) V1 Compared to ECG 08/22/2017 19:54:21 Sinus rate has increased Ventricular premature complex(es) no longer present Left ventricular hypertrophy no longer present Myocardial infarct finding still present Electronically Signed On 04-25-2019 12:33:08 REGISTERED NURSE OBSTETRICS by Arnulfo Chaidez [email or web address] <ELECTRONICALLY SIGNED> By: Arnulfo Chaidez MD, [facility] 04/25/19 1233 1644 1644 Arnulfo Chaidez MD, [facility] /EPI
--- NOTE | 2019-04-25 14:06 | 2DMMODE ---
[place] [address] 2 D/M-MODE ECHOCARDIOGRAM Name: JAK MCCARTNEY Room: [address] IN .R.#: [id number] Admission: 04/24/19 Attend Phys: Joe Aguirre Discharge: Date of : 64 Date of Service: 04/25/19 1405 Report #: [id number] THIS REPORT FOR: //name// APPROVED REPORT Study performed: 04/25/2019 09:09:14 EXAM: Comprehensive 2D, Doppler, and color-flow Echocardiogram Patient Location: Bedside BSA: 1.64 HR: 115 bpm BP: 169/94 mmHg Other Information Study Quality: Good Indications Dyspnea 2D Dimensions IVSd: 10.33 (7-11mm) LVOT Diam: 21.31 (18-24mm) LVDd: 43.38 mm PWd: 5.74 (7-11mm) Ascending Ao: 32.88 (22-36mm) LVDs: 35.03 (25-40mm) Aortic Root: 29.19 mm Volumes Left Atrial Volume (Systole) LA ESV Index: 46.80 mL/m2 Aortic Valve AoV Peak Kulwinder.: 1.21 m/s AO Peak Gr.: 5.83 mmHg LVOT Max P.52 mmHg AO Mean Gr.: 3.43 mmHg LVOT Mean P.61 mmHg LVOT Max V: 0.94 m/s AO V2 VTI: 19.46 cm LVOT Mean V: 0.57 m/s MELISSA (VTI): 2.66 cm2 LVOT V1 VTI: 14.51 cm Mitral Valve E/A Ratio: 1.60 MV Decel. Time: 159.54 ms MV E Max Kulwinder.: 1.05 m/s MV PHT: 46.27 ms MVA (PHT): 4.76 cm2 [place] [address] 2 D/M-MODE ECHOCARDIOGRAM Name: JAK MCCARTNEY Room: [address] IN .R.#: [id number] Admission: 04/24/19 Attend Phys: Joe Aguirre Discharge: Date of : 64 Date of Service: 04/25/19 1405 Report #: [id number] TDI E/Lateral E': 17.50 E/Medial E': 21.00 Medial E' Kulwinder.: 0.05 m/s Lateral E' Kulwinder.: 0.06 m/s Pulmonary Valve PV Peak Kulwinder.: 1.00 m/s PV Peak Gr.: 4.02 mmHg Tricuspid Valve RAP Estimate: 5.00 mmHg TR Peak Gr.: 65.07 mmHg RVSP: 70.07 mmHg PA Pressure: 70.07 mmHg Left Ventricle The left ventricle is normal size. There is hypokinesis of the mid to apical septal anteroseptal and anterior wall. There is normal left ventricular wall thickness. Left ventricular systolic function is moderately decreased. A false tendon. LVEF is 30-35%. Transmitral Doppler flow pattern suggests restrictive physiology. Right Ventricle The right ventricle is normal size. The right ventricular systolic function is normal. Atria Left atrium is moderately dilated. The right atrium size is normal. Aortic Valve The Aortic valve is sclerotic. No aortic regurgitation is present. There is no aortic valvular stenosis. Mitral Valve There is mitral annular calcification. Mild mitral regurgitation. No evidence of mitral valve stenosis. Tricuspid Valve The tricuspid valve is normal in structure. Mild tricuspid regurgitation. Pulmonic Valve The pulmonary valve is normal in structure. There is no pulmonic valvular regurgitation[place] [address] 2 D/M-MODE ECHOCARDIOGRAM Name: JAK MCCARTNEY Room: [address]#: [id number] Admission: 04/24/19 Attend Phys: Joe Aguirre Discharge: Date of : 64 Date of Service: 04/25/19 1405 Report #: [id number] The aortic root is normal in size. IVC is normal in size and collapses >50% with inspiration. Pericardium There is no pericardial effusion. Pleural effusion. <Conclusion> The left ventricle is normal size. There is normal left ventricular wall thickness. Left ventricular systolic function is moderately decreased. LVEF is 30-35%. Transmitral Doppler flow pattern suggests restrictive physiology. Left atrium is moderately dilated. Mild mitral regurgitation. Mild tricuspid regurgitation. Pleural effusion. <ELECTRONICALLY SIGNED> By: Xavier Smyth MD, FACC 04/25/19 1405 1405 1405 Xavier Smyth MD, FACC /INF
[2019-04-25 16:46] LABS: BF RBC 4032 /mm3; TOTAL CELL COUNT 1049 /mm3
[2019-04-25 17:03] LABS: CLARITY HAZY; TOTAL VOLUME 1150 ml
[2019-04-25 17:07] LABS: BF LYMPHOCYTES 5 %; BF MONOCYTES 6 %; BF POLYS 89 %; BF TISSUE 1 /100 WBC; SOURCE PLEURAL FLUID
--- NOTE | 2019-04-25 18:05 | CON ---
[facility] [address] [place] [address] CONSULTATION Name: JAK MCCARTNEY Room: [address] IN .R.#: [id number] Admission: 04/24/19 Attend Phys: Geovany Acharya Discharge: Date of : 64 Report #: [id number] THIS REPORT FOR: //name// CC: GARY physician/PCP Joe Aguirre DATE OF SERVICE: 04/25/2019 I was asked to see this 59-year-old lady for acute respiratory failure. HISTORY OF PRESENT ILLNESS: The patient is currently on BiPAP. The patient was just given Ativan, so she is not able to give me any information. She appears tachypneic. She is on BiPAP. All of the information was obtained from chart, nursing staff. She has a significant history of smoking, details are not known. She does have coronary artery disease, cardiomyopathy and CHF. She has had shortness of breath, wheezing and cough for the past few days. She was brought to the Emergency Room for further evaluation. She was given Lasix and was placed on BiPAP and transferred to ICU. She is currently on BiPAP. She is tachypneic and tachycardic. She was just started on nitro drip per Cardiology. She on heparin drip because of elevated troponin. She has fever. She has had lower extremity edema. PAST MEDICAL HISTORY: Coronary artery disease, smoker, suspect significant COPD, cardiomyopathy and hypertension. CVA, history of chronic pancreatitis, history of cardiac tamponade. SOCIAL HISTORY: Significant history of smoking and alcohol abuse; details are not known. FAMILY HISTORY: Unable to obtain. The patient is on the BiPAP and sedated. ALLERGIES: No known drug allergies. MEDICATIONS: She is on Lasix, Rocephin, azithromycin, nitro drip and Ativan p.r.n. REVIEW OF SYSTEMS: As mentioned as above, other systems are otherwise negative. PHYSICAL EXAMINATION: GENERAL: She is on BiPAP. She appears tachypneic. VITAL SIGNS: Her O2 saturation on 35% FiO2 is 96%, respiratory rate 34, heart rate 127, blood pressure 166/100, but earlier was 205/133 and temperature 100.1. HEENT: Normocephalic, atraumatic. Pupils equal, round, reactive to light. She has BiPAP mask on. NECK: Positive JVD. No lymphadenopathy [place] [address] CONSULTATION Name: JAK MCCARTNEY Room: [address]#: [id number] Admission: 04/24/19 Attend Phys: Geovany Acharya Discharge: Date of : 64 Report #: [id number] CARDIOVASCULAR: Tachycardic. CHEST: On inspection, she appears tachypneic. LUNGS: There is bilateral end-expiratory wheezing, bibasilar crackles, dullness at the right base. ABDOMEN: Soft. Bowel sounds are good. There is no mass. EXTREMITIES: There is trace edema. LYMPHATICS: There is no lymphadenopathy. NEUROLOGIC: She is sedated. SKIN: Warm. LABORATORY DATA: I reviewed the following lab data: Chest x-ray showed bilateral infiltrate, right more than right effusion. CT of the chest did not show pulmonary embolism shows moderate right pleural effusion, bilateral infiltrate right more than left, lower lobe atelectasis, emphysema. WBC 8.8, hemoglobin 16.7, platelet 282. Sodium 133, potassium 3.6, chloride 92, and CO2 of 29. Lactic acid 3.1. Troponin 1.24. BNP 22,416. Influenza A and B not done. ABG: pH 7.33, pCO2 of 43, pO2 of 81, on BiPAP 168, rate of 20, FiO2 of 30%. IMPRESSION: 1. Acute respiratory failure, multifactorial in etiology including acute systolic congestive heart failure, acute bronchitis versus pneumonia, acute exacerbation of chronic obstructive pulmonary disease, no pulmonary embolism. 2. Abnormal CT of the chest. 3. Acute exacerbation of chronic obstructive pulmonary disease. 4. Acute systolic congestive heart failure. 5. Right pleural effusion. Differential diagnosis congestive heart failure versus parapneumonic effusion versus others. 6. Tobacco abuse. 7. Hypertension. 8. Elevated troponin. 9. Elevated lactic acid, ? sepsis. 10. History of cerebrovascular accident. 11. History of alcohol abuse. PLAN AND RECOMMENDATIONS: 1. Titrate FiO2 to keep O2 saturation 92%. 2. Bronchodilator. 3. Inhaled corticosteroid. 4. Start Solu-Medrol 80 mg IV every 8 hours. 5. Continue Rocephin and azithromycin. 6. Keep intake less than output. Agree with Lasix. Monitor potassium and creatinine. 7. I asked IR to do ultrasound-guided thoracentesis. We will send pleural [facility] [address] [place] [address] CONSULTATION Name: JAK MCCARTNEY Room: M.004-P ADM IN M.R.#: [id number] Admission: 04/24/19 Attend Phys: Geovany Acharya Discharge: Date of : 64 Report #: [id number] fluid for pH, cell count with differential, cytology, LDH, glucose, protein and cultures. 8. We will send LDH, glucose, and protein at the time of thoracentesis. 9. Heparin drip per Cardiology. 10. Cardiology is consulted. 11. Continue BiPAP, setting was reviewed. 12. Monitor closely in ICU. 13. The findings and recommendations were discussed with RN and RT. Thank you very much for allowing me to participate in care of this very nice lady. <ELECTRONICALLY SIGNED> By: Elle Gonzalez MD 04/25/19 1805 0428 [id number] Gonzalez MD /nt
--- NOTE | 2019-04-25 19:43 | NUR ---
RT THORACENTESIS PERFORMED, 1450 MLS REMOVED. PT DROWSY AND LETHARGIC THE WHOLE DAY BUT FOLLOWS COMMANDS. POTASSIUM REPLACED PER PROTOCOL. VSS. UOP-4L. NITRO DRIP CONTD AT 30 MCG/HR. Q2 TURNS FOR SKIN INTEGRITY. FAMILY UPDATED.
--- NOTE | 2019-04-25 20:25 | NUR ---
INITAL ASSESMENT COMPLETED AT 191. PT DROWSY AND LETHARGIC. O2 SAT >95% ON O2 AT 4 LITERS PER NASAL CANULA. CALL LIGHT IN REACH, PT IN FULL VIEW OF NURSES STATION, FALL PRECAUTIONS IN PLACE.
[2019-04-26] VITALS (41 sets, daily range): BP systolic 104–181; BP diastolic 45–102
--- NOTE | 2019-04-26 02:06 | NUR ---
PT RESTLESS AND IMPULSIVE. PT REMOVING LEADS AND ATTEMPTING TO CLIMB OVER SIDE RAILS. PT DISROBING. PT GIVEN PRN ATIVAN.
--- NOTE | 2019-04-26 02:50 | NUR ---
RESTLESSNESS RESOLVED. PT PLACED ON BIPAP PER RT FOR O2 SAT 90%, RESPIRATIONS SHALLOW.
--- NOTE | 2019-04-26 08:37 | CON ---
[facility] [address] [place] [address] CONSULTATION Name: JAK MCCARTNEY Room: [address] IN .R.#: [id number] Admission: 04/24/19 Attend Phys: Geovany Acharya Discharge: Date of : 64 Report #: [id number] THIS REPORT FOR: //name// CC: Dale Morrison MD [facility] physician/PCP Ning Katz INDICATION: Acute on chronic combined heart failure. HISTORY OF PRESENT ILLNESS: The patient is a 59-year-old white female with a history of myocardial infarctions in the past. She has ischemic cardiomyopathy with an ejection fraction traditionally of approximately 45%. She was admitted to the hospital with acute shortness of breath. Chest x-ray shows a rather sizable right pleural effusion as well as changes to suggest congestive heart failure. NT-proBNP was elevated. EKG showed sinus tachycardia without acute ST segment changes. She was significantly hypertensive. The patient was given IV Lasix with prompt diuresis. With this, her blood pressure has improved. She remains moderately tachycardic. An echocardiogram shows significant pulmonary hypertension, moderate left ventricular systolic dysfunction and grade 3 diastolic dysfunction. In this setting, her troponin did elevate to 2.97. I suspect elevated troponin secondary to strain. She has been complaining of increasing dyspnea on exertion for the past 2 to 3 weeks without chanda chest pain. Presently, she is on BiPAP and sedated. PAST MEDICAL HISTORY: 1. Coronary artery disease. 2. Ischemic cardiomyopathy with previous percutaneous coronary intervention. 3. Hypertension. 4. Hypertensive heart disease. 5. Chronic combined heart failure. 6. History of an ischemic stroke. 7. Chronic tobacco abuse. 8. History of alcohol abuse. 9. Peripheral artery disease with no prior intervention. 10. Hyperlipidemia. PAST SURGICAL HISTORY: 1. Carotid stent. 2. Coronary stent. 3. Hysterectomy. FAMILY HISTORY: Positive for hypertension. SOCIAL HISTORY: The patient smokes cigarettes daily. [place] [address] CONSULTATION Name: JAK MCCARTNEY Room: [address]#: [id number] Admission: 04/24/19 Attend Phys: Geovany Acharya Discharge: Date of : 64 Report #: [id number] REVIEW OF SYSTEMS: A 14-point review of systems is positive for dry cough, chest tightness, dyspnea on exertion, orthopnea and paroxysmal nocturnal dyspnea, history of anemia, history of cervical cancer remotely. She wears glasses without acute visual change. PHYSICAL EXAMINATION: VITAL SIGNS: Blood pressure 169/94, pulse 115. Telemetry shows sinus tachycardia. GENERAL: This is a 59-year-old white female, presently on BiPAP and sedated. History is provided mostly by family. HEENT: Head is normocephalic, atraumatic. NECK: With jugular venous distention. I do not appreciate bruit. CHEST: Reveals diffuse expiratory wheezes with diminished breath sounds throughout and absent on the right base. CARDIOVASCULAR: Reveals a tachycardic rate with a regular rhythm. I do not appreciate gallop or murmur. ABDOMEN: Reveals abdomen to be soft with positive bowel sounds. EXTREMITIES: Shows no significant edema. SCDs in place. SKIN: Dry. RADIOLOGICAL DATA: Chest x-ray shows large right pleural effusion and pulmonary vascular congestion. LABORATORY DATA: Reviewed. Troponins were less than 0.06, 0.34, 1.41 and 2.96 consecutively. NT-proBNP was 22,416. IMPRESSION AND RECOMMENDATIONS: 1. Acute on chronic combined heart failure. The patient is improving with IV diuresis. We will reinstitute beta ramiro for better rate control of her heart rate and reinstitute heart failure medications as tolerated. 2. Elevated troponin, likely secondary to strain consistent with type 2 myocardial infarction. I do not recommend any invasive evaluation at this time. We will discontinue heparin and follow clinically. 3. Coronary artery disease as outlined above. Continue dual antiplatelet therapy in the form of Effient and aspirin. 4. Hyperlipidemia. Continue atorvastatin 80 mg at bedtime. 5. Pulmonary hypertension, treated with IV diuretics at this time. She is on a nitroglycerin drip, which I would continue through the acute phase. 6. Right pleural effusion. No contraindication from a cardiac standpoint for pleurocentesis. <ELECTRONICALLY SIGNED> By: Xavier Smyth MD, FACC 04/26/19 0837 1019 [id number] Smyth MD, FACC /nt
--- NOTE | 2019-04-26 09:00 | NUR ---
PT LETHARGIC BUT FOLLOWS COMMANDS AT TIMES, PASSED HER BED SIDE SWALLOW BUT WOULD NOT SWALLOW HER MEDS WITH APPLE SAUCE.
[2019-04-26 09:32] LABS: BUN 16 mg/dL (7-18); CALCIUM 8.6 mg/dL (8.5-10.1); CHLORIDE 95 mmol/L (98-107); GLUCOSE 146 mg/dL (70-99); POTASSIUM 3.7 mmol/L (3.5-5.1); SODIUM 140 mmol/L (136-145)
[2019-04-26 09:33] LABS: CO2 > 45 mmol/L (21-32)
--- NOTE | 2019-04-26 10:30 | NUR ---
PT.SLEEPING. RESTLESS. SPOKE WITH MOTHER,KODY, AT BEDSIDE. SHE SAID PT.AND HER 2 ADULT SON'S LIVE WITH HER IN A HOUSE. NORMALLY IS INDEPENDENT. NO USE OF DME,HX OR SNF. KODY SAID SHE HAD CANCER LAST YEAR AND JAK WAS THE ONE THAT DROVE HER TO ALL APPT., WAS THERE FOR HER AND ASSISTED HER. MOTHER ENCOURAGED HER TO GO TO THE DR.FOR SOA. DAUGHTER IS VERY STUBBORN AND WOULD SAY WHEN MOM GOT WELL SHE WOULD SEE ABOUT HERSELF. SHE SAID PT.IS A HEAVY SMOKER. PT.DOES NOT HAVE A DPOA. CM WILL FOLLOW.
[2019-04-26 14:07] LABS: BODY FLUID AMYLASE 65 U/L (()); BODY FLUID LDH 127 IU/L (()); BODY FLUID PROTEIN 2.5 g/dL (())
[2019-04-26 17:06] LABS: SOURCE THORACENTESIS
[2019-04-26 18:06] LABS: BODY FLUID PH 7.6 (Not Estab.)
--- NOTE | 2019-04-26 19:22 | NUR ---
PT HARDLY RESPONDING TO QUESTIONS, LETHARGIC MOST OF THE TIMES. VSS, O2 SATS >92% IN NC 4L/MIN. NO BIPAP PER PULMONARY D/T RT PNEUMOTHORAX. PT SAT AT THE EDGE OF THE BED FOR ABT 10 MINS. NITRO DRIP CONTD AT 30 MCG/MIN. NO BM THIS SHIFT. UOP 4200 MLS.
[2019-04-27] VITALS (11 sets, daily range): BP systolic 111–180; BP diastolic 49–108
[2019-04-27 03:43] LABS: HEMATOCRIT 42.7 % (37.0-47.0); HEMOGLOBIN 13.7 gm/dL (12.0-15.0); MCH 24.6 pg (26.0-34.0); MCHC 32.1 g/dL (28.0-37.0); MCV 76.7 fL (80.0-100.0); MPV 7.4 fl. (7.2-11.1); RBC 5.57 mil/uL (4.20-5.00); RDW-CV 17.2 % (10.5-14.5); WBC 5.4 thou/uL (4.0-11.0)
[2019-04-27 03:52] LABS: BUN 19 mg/dL (7-18); CALCIUM 8.3 mg/dL (8.5-10.1); CHLORIDE 93 mmol/L (98-107); CREATININE 0.8 mg/dL (0.6-1.3); GLUCOSE 171 mg/dL (70-99); MAGNESIUM 1.4 mg/dL (1.8-2.4); POTASSIUM 3.2 mmol/L (3.5-5.1); SODIUM 141 mmol/L (136-145)
[2019-04-27 03:55] LABS: CO2 > 45 mmol/L (21-32)
--- NOTE | 2019-04-27 04:41 | NUR ---
ASSUMED CARE AT 1900H, ON NC AT 3-4LPM AND TOLERATED.NO DISTRESS NOR BLEEDING NOTED.PT STILL LETHURGIC AND DROWSY BUT SAID NO WHEN I GAVE HER ORAL MEDS LAST NIGHT.NITOGLYCERIN DRIP STOP AT 0315H, BP WITHIN NORMAL AND NO SOA OR CHEST PAIN.REPORT GIVEN TO TELE NURSE AND OUT FROM THE UNIT AT 0420H.
--- NOTE | 2019-04-27 05:24 | NUR ---
PT TRANSFERED FROM ICU TO ROOM 203. DROWSEY, NONVERBLE, GRIMACE TO VOICE AND TURN. PT DID MOVE LEG WITH MUCH PROMPTING. PAIN THIERRY. TELEMETRY SHOWS SR. O2 AT 4 LITERS. UNABLE TO TAKE PO PER REPORT. ETIENNE WITH DARK YELLOW. VSS. WCTM
--- NOTE | 2019-04-27 06:26 | NUR ---
AGREE WITH PREVIOUS ASSESSMENT EXCEPT BREATH SOUNDS DIMINISHED. GCS 8.
--- NOTE | 2019-04-27 16:18 | NUR ---
RECEIVED REPORT FROM NEFTALY HU. ASSUMED CARE OF PT AROUND 0730. PT LETHARGIC, DROWSY/SLEEPING UPON AM ASSESSMENT. PT NOT SPEAKING, ONLY RAISING EYEBROWS IN RESPONSE TO QUESTIONS. PT ABLE TO MOVE LEGS WHEN ASKED. UPPER EXTREMITIES WEAK. PT UNALBE, OR UNWILLING, TO OPEN EYES WHEN ASKED. MOTHER AT BEDSIDE. VSS. O2 SAT >90% ON 4L PER NC. AM ASSESSMENT AND VITALS COMPLETED CHARTED. SUPPORT MANAGER IN PLACE TRACING SR TO ST WITH PVCS. PT DOES NOT APPEAR IN PAIN OR DISCOMFORT. ETIENNE IN PLACE TO DD, URINE YELLOW. PT NPO, HAS NO BEEN AWAKE ENOUGH TO PERFORM A BEDSIDE SWALLOW YET THIS SHIFT, DESPITE MANY ATTEMPTS AT ROUSING PT. PT WORKED WITH P.T. AND O.T. THIS SHIFT BUT STILL REFUSED TO OPEN HER EYES AND REMAINED VERY DROWSY AND LETHARGIC. PT UP TO BEDSIDE CHAIR WITH NURSE AND P.T., BUT WAS MAX ASSIST. MEDS PER EMAR. PO MEDS HELD. PT TURNED Q2HRS AND PRN. WILL CONTINUE TO TRY AND AWAKEN PT, IN HOPES OF PERFORMING A BEDSIDE SWALLOW AND ENCOURAGING DIET. PT CURRENTLY RESTING IN BED. CALL LIGHT IS WITHIN REACH. HOURLY ROUNDING PERFORMED. FALL PRECAUTIONS IN PLACE.
--- NOTE | 2019-04-27 16:51 | NUR ---
WENT IN TO CHECK ON PT AND PT WAS MORE AWAKE, ATTEMPTING TO THROW LEGS OVER THE SIDE OF THE BED. EYES PARTIALLY OPEN. ASKED PT IF SHE WOULD LIKE A DRINK OF WATER, SHE NODDED YES. ATTEMPTED A SMALL SIP FROM CUP - PT ABLE TO SWALLOW, BUT IT WAS DELAYED. ATTEMPTED A SECOND SIP - AGAIN PT ABLE TO SWALLOW BUT IT WAS VERY DELAYED AND SOME SPILLED OUT OF THE SIDE OF HER MOUTH. PT TO REMAIN NPO AT THIS TIME UNTIL MORE AWAKE AND CAN SAFELY SWALLOW.
--- NOTE | 2019-04-27 17:19 | NUR ---
REPORT GIVEN TO MARCE HU.
[2019-04-28 04:00] VITALS: BP 170/92
--- NOTE | 2019-04-28 05:30 | NUR ---
ASSUMED PT CARE AT APPROX 1930. PT IS LETHARGIC BUT IS AROUSABLE TO VERBAL STIMULUS, IS ABLE TO ANSWER SIMPLE QUESTIONS WITH A YES/NO, IS SOMEWHAT IMPULSIVE AND CONFUSED AND TRIES TO GET OUT OF BED. PT IS KEPT CLOSELY MONITORED. HIGH FALL PRECAUTIONS IN PLACE.
[2019-04-28 08:00] VITALS: BP 165/84
--- NOTE | 2019-04-28 08:30 | NUR ---
PT LETHARGIC AND NOT FOLLOWING COMMANDS. WILL HOLD MEDS FOR NOW
[2019-04-28 08:34] LABS: BE 15.1 mmol/L (-2 to +3); PCO2 VENOUS 65.7 mmHg (41.0-51.0)
[2019-04-28 08:36] LABS: HEMATOCRIT 49.8 % (37.0-47.0); MCH 24.5 pg (26.0-34.0); MCHC 31.6 g/dL (28.0-37.0); MCV 77.4 fL (80.0-100.0); MPV 7.6 fl. (7.2-11.1); RBC 6.44 mil/uL (4.20-5.00); RDW-CV 17.4 % (10.5-14.5); WBC 11.2 thou/uL (4.0-11.0)
[2019-04-28 08:49] LABS: HEMOGLOBIN 15.7 gm/dL (12.0-15.0)
[2019-04-28 09:16] LABS: BUN 27 mg/dL (7-18); CALCIUM 9.4 mg/dL (8.5-10.1); CHLORIDE 93 mmol/L (98-107); CREATININE 0.9 mg/dL (0.6-1.3); GLUCOSE 181 mg/dL (70-99); MAGNESIUM 1.7 mg/dL (1.8-2.4); POTASSIUM 3.4 mmol/L (3.5-5.1); SODIUM 144 mmol/L (136-145)
[2019-04-28 09:24] LABS: CO2 > 45 mmol/L (21-32)
[2019-04-28 11:56] LABS: SOURCE THORACENTESIS
[2019-04-28 12:15] VITALS: BP 171/112
--- NOTE | 2019-04-28 13:00 | NUR ---
PT MORE AWAKE AND FOLLOWING COMMANDS. PT GIVEN PILLS IN APPLESAUCE AND DRANK SOME WATER. MOTHER AT BS. WILL CONTINUE TO MONITOR
[2019-04-28 16:45] VITALS: BP 172/109
--- NOTE | 2019-04-28 17:42 | NUR ---
PT RESTING IN BED THROUGHOUT SHIFT. PT SLEEPING AND DOES NOT RESPOND TO COMMANDS UNLESS SHE IS STIMULATED. WHEN STIMULATED PT WILL BECOME IMPULSIVE BUT STILL CONFUSED. ABLE TO DRINK WITH ASSIST AND PROMPTING. MEDS HELD THIS AM BUT GIVEN LATER IN THE EVENING WHEN PT MORE ALERT. MOTHER AT AND UPDATED ON PLAN OF CARE. IVF INFUSING. ETIENNE CATH DRAINING CLEAR YELLOW URINE. PT UNABLE TO DO CT SCAN D/T MOVEMENT-DRS AWARE
[2019-04-28 20:00] VITALS: BP 173/101
[2019-04-29] VITALS: BP 149/91
[2019-04-29 04:00] VITALS: BP 169/104
--- NOTE | 2019-04-29 04:13 | NUR ---
ASSUMED PT CARE AT APPROX 1930. PT IS LETHARGIC BUT AWAKENS WHEN NAME IS CALLED. PT IS ABLE TO ANSWER SOME SIMPLE QUESTIONS AND IS MORE RESPONSIVE THIS SHIFT. ASSESSMENT DONE AND CHARTED. PT IS TRACING SR w/ OCCASIONAL PVCs ON THE ZOO KEEPER. BLOOD PRESSURES WERE ELEVATED-MEDS GIVEN PER EMAR. PT REMAINED ON 4L OF O2/NC-spo2 IS 92-94%. HIGH FALL PRECAUTIONS IN PLACE. PT IS CLOSELY MONITORED.
[2019-04-29 04:43] LABS: HEMATOCRIT 46.4 % (37.0-47.0); HEMOGLOBIN 15.1 gm/dL (12.0-15.0); MCH 24.7 pg (26.0-34.0); MCHC 32.5 g/dL (28.0-37.0); MCV 75.9 fL (80.0-100.0); MPV 7.4 fl. (7.2-11.1); RBC 6.12 mil/uL (4.20-5.00); RDW-CV 16.7 % (10.5-14.5); WBC 8.7 thou/uL (4.0-11.0)
[2019-04-29 05:15] LABS: BUN 24 mg/dL (7-18); CALCIUM 8.7 mg/dL (8.5-10.1); CHLORIDE 89 mmol/L (98-107); CREATININE 0.7 mg/dL (0.6-1.3); GLUCOSE 123 mg/dL (70-99); MAGNESIUM 1.7 mg/dL (1.8-2.4)
[2019-04-29 05:17] LABS: SODIUM 136 mmol/L (136-145)
[2019-04-29 05:24] LABS: CO2 > 45 mmol/L (21-32)
[2019-04-29 07:00] VITALS: BP 150/76
--- NOTE | 2019-04-29 11:59 | NUR ---
CM discussed skilled with Pt and mother, Pt in agreement. CM faxed referral to [facility] per Pt request. Spoke with eliseo Frazier dc later this week. Following.
[2019-04-29 12:08] VITALS: BP 166/89
--- NOTE | 2019-04-29 16:23 | NUR ---
INITAL ASSESSMENT COMPLETED CHARTED. VSS. TRACING SR WITH PVC'S ON MONITOR. PT IS ALERT THIS MORNING, ORIENTED TO SELF AND PLACE. MOTHER AT BEDSIDE. REFER TO COMPUTER CHARTING FOR FURTHER INFORMATION. HOURLY ROUNDING AND FALL PRECAUTIONS IN PLACE FOR PT SAFETY. CLWR.
--- NOTE | 2019-04-29 17:06 | PATH ---
[address] [address] PATHOLOGY RPT PROCEDURE Name: JAK MCCARTNEY Geovany Room: [address] IN [facility]#: [id number] Admission: 04/24/19 Date of : 64 Discharge: Report #: [id number] Path Case #: [id number] Note LCA Accession Number: [id number] TESTS RESULT FLAG UNITS REF RANGE LAB Clinician Provided Cytology Information No. of containers..01 Other (Miscellaneous) Source: 01 RIGHT PLEURAL Clinician ICD10: 01 A41.9 J18.9 DIAGNOSIS: 02 RIGHT PLEURAL NEGATIVE FOR MALIGNANT CELLS. REACTIVE MESOTHELIAL CELLS ARE PRESENT. Signed out by: 02 Jarad Gonzalez MD, Pathologist NPI- [id number] Performed by: 01 Guero Salas, [employer] ([facility]) Gross description: 01 50ML, CLUMPY YELLOW, 1 TP 1 CB /LCS 04/26/2019 1656 Local FLAG LEGEND: L-Low Normal,H-High Normal,LL-Alert Low,HH-Alert High <-Panic Low,>-Panic High,A-Abnormal,AA-Critical Abnormal Performed at: [address] [place] [address] Chace Sun MD, [address] [place] [address] [address] , [place] [address] Frank Carrion MD, Specimen Comment: A courtesy copy of this report has been sent to [phone], [phone] Specimen Comment: [id number] Specimen Comment: Report sent to / DR BETANCOURT Performed at: [address], [place], [place] [id number] MD Chace Sun MD Phone: [phone]
[2019-04-29 17:17] VITALS: BP 129/71
[2019-04-29 20:00] VITALS: BP 133/76
[2019-04-30] VITALS: BP 115/64
[2019-04-30 04:00] VITALS: BP 129/73
[2019-04-30 06:02] LABS: HEMATOCRIT 45.6 % (37.0-47.0); HEMOGLOBIN 14.7 gm/dL (12.0-15.0); MCH 24.4 pg (26.0-34.0); MCHC 32.3 g/dL (28.0-37.0); MCV 75.4 fL (80.0-100.0); MPV 7.9 fl. (7.2-11.1); RBC 6.05 mil/uL (4.20-5.00); RDW-CV 16.6 % (10.5-14.5); WBC 8.9 thou/uL (4.0-11.0)
[2019-04-30 06:24] LABS: ALBUMIN 2.5 g/dL (3.4-5.0); ALKALINE PHOSPHATASE 204 U/L (46-116); ANION GAP < 0 mmol/L (7-16); BUN 20 mg/dL (7-18); CALCIUM 8.2 mg/dL (8.5-10.1); CHLORIDE 89 mmol/L (98-107); CO2 42 mmol/L (21-32); CREATININE 0.8 mg/dL (0.6-1.3); DIRECT BILIRUBIN 0.6 mg/dL (<0.1-0.3); GLUCOSE 203 mg/dL (70-99); MAGNESIUM 1.8 mg/dL (1.8-2.4); POTASSIUM 4.3 mmol/L (3.5-5.1); SGOT 53 U/L (15-37); SGPT 113 U/L (30-65); SODIUM 130 mmol/L (136-145); TOTAL BILIRUBIN 1.1 mg/dL (<0.1-1.0); TOTAL PROTEIN 6.5 g/dL (6.4-8.2)
[2019-04-30 07:00] VITALS: BP 147/94
--- NOTE | 2019-04-30 07:13 | NUR ---
ASSUMED PT CARE AT APPROX 1930. PT IS MORE AWAKE AND IS ABLE TO EXPRESS SELF MORE THIS SHIFT WITH EPISODES OF IMPULSIVENESS AND AGITATION AT THE LATER PARTS OF THIS SHIFT, VERBALIZED THAT SHE "WANTS TO GET THE HELL OUT OF HERE". VSS ON 2L OF O2/NC. BLOW MOLD TECHNICIAN IN PLACE TRACING SR w/ OCCASIONAL PVCs. PT PULLED OUT ETIENNE CATHETER AT APPROX 0400. NO ACTIVE BLEEDING NOTED. PT HAS NOT VOIDED YET AFTER REMOVAL. ONE TO ONE SITTER PROVIDED AFTER THE INCIDENT. PT IS KEPT CLOSELY MONITORED. HIGH FALL PRECAUTIONS IN PLACE.
--- NOTE | 2019-04-30 08:39 | NUR ---
Nona from [facility] to come and complete onsite visit
[2019-04-30 11:30] VITALS: BP 145/92
--- NOTE | 2019-04-30 13:13 | NUR ---
INITAL ASSESSMENT COMPLETED CHARTED. VSS. TRACING SR WITH PVC'S ON MONITOR. PT IS ALERT & ORIENTED TO PERSON, PLACE, AND SITUATION. PT IS UP TO BSC WITH SBA. PT CAN BE FORGETFUL AND IMPULSIVE AT TIMES. HOURLY ROUNDING AND FALL PRECAUTIONS IN PLACE. CLWR.
[2019-04-30 16:10] VITALS: BP 148/87
[2019-04-30 20:00] VITALS: BP 145/80
[2019-05-01] VITALS: BP 149/83
[2019-05-01 03:57] VITALS: BP 157/98
--- NOTE | 2019-05-01 05:40 | NUR ---
PT MUCH IMPROVED WITH CONFUSION, A&O THIS SHIFT. C/O PAIN TO BACK WITH PARTIAL RELIEF FROM PRN PAIN MEDICATION. PT SEEN BY PULMONOLOGY THIS AM, DC IV FLUIDS. NO OTHER CONCERNS NOTED BY PT AT THIS TIME. CURRENTLY ASLEEP IN BED WITH CALL LIGHT WITHIN REACH AND BED ALARM ON.
[2019-05-01 08:02] VITALS: BP 154/98
--- NOTE | 2019-05-01 10:30 | NUR ---
ASSUMED PT CARE 0730. PT A/O X'S 4. COUGH PRESENT. PT TOLERATING DIET. PT C/O OF HEADACHE 10/31. PT GIVEN TYLENOL PER EMAR. AT REASSESSMENT PT RATES PAIN 5/10. PT REPORTS 5/10 IS ACCEPTABLE PAIN LEVEL. PT REPORTS SHE HAS A HISTORY OF HEADACHES AND MIGRAINES. PT AMBULATING TO BR WITH WALKER. FAMILY AT BEDSIDE. WILL CONTINUE PLAN OF CARE.
[2019-05-01 12:00] VITALS: BP 138/91
--- NOTE | 2019-05-01 12:44 | NUR ---
Spoke with , Pt will be ready to dc to skilled tomorrow. Updated Trupti at [facility]. Pt has been sitter free since yesterday at 1pm.
--- NOTE | 2019-05-01 15:45 | NUR ---
PT SITTING IN RECLINER THIS AFTERNOON.
--- NOTE | 2019-05-01 18:03 | NUR ---
PATIENT ARRIVED TO UNIT THIS EVENING. PATIENT SETTLED TO ROOM. PATIENT IS UP IN CHAIR VISITING WITH FAMILY. PATIENT DENIES ANY PAIN OR TROUBLE BREATHING AT THIS TIME. CALL LIGHT WITHIN REACH. WILL CONTINUE TO MONITOR.
[2019-05-01 20:00] VITALS: BP 167/88
[2019-05-02 04:46] LABS: CALCIUM 8.4 mg/dL (8.5-10.1); CREATININE 0.9 mg/dL (0.6-1.3); POTASSIUM 3.8 mmol/L (3.5-5.1)
--- NOTE | 2019-05-02 05:20 | NUR ---
PT SLEPT WELL OVERNIGHT. UP AD [place] TO BATHROOM TO VOID. LFA SL. AM LAB DRAWN. ROOM AIR SAT 95%. RT TX GIVEN ORDERED. TOLERATED SNACK AT BEDTIME WITHOUT N/V. ABLE TO USE CALL LITE AND MAKE NEEDS KNOWN.
[2019-05-02 07:55] VITALS: BP 142/79
[2019-05-02 09:07] VITALS: BP 142/79
[2019-05-02] MEDS ORDERED: PREDNISONE 10 M10 MG PO (11:19)
[2019-05-02] MEDS ORDERED: NEBULIZER MISCELL (11:19)
[2019-05-02] MEDS ORDERED: PERFOROMIS20 MCG/2 M INH ×2 (11:19→12:45)
[2019-05-02] MEDS ORDERED: LEVOTHYROXINE25 MCG PO (11:19)
[2019-05-02] MEDS ORDERED: FOSINOPRIL 10 M10 M1 PO (11:19)
[2019-05-02] MEDS ORDERED: COREG25 MG PO (11:19)
[2019-05-02] MEDS ORDERED: IPRAT-ALBUT 0.5-3 ML INH ×2 (11:19→12:45)
[2019-05-02] MEDS ORDERED: KLOR-CON M2020 MEQ PO (11:21)
[2019-05-02] MEDS ORDERED: LASIX 40 MG TAB40 MG PO (11:21)
--- NOTE | 2019-05-02 11:28 | NUR ---
FAXED UPDATED REFERRAL TO [facility] WITH CURRENT ASSESSMENTS, LABS AND MEDS.
--- NOTE | 2019-05-02 13:08 | NUR ---
Pt to dc home with home health services to follow since pt improved in mobility and strength, no longer needing SNF. MAGALIS met with pt and discussed dc plan and HH options, pt chose [facility], SW faxed referral and orders to HH. Pt roommate to provide pt ride home. Pt PCP is Dr Mancia in [place]. MAGALIS called HH intake and informed of PCP name.
--- NOTE | 2019-05-02 17:05 | NUR ---
PATIENT DISCHARGED TO HOME WITH HOME HEALTH. DISCHARGE PAPERS REVIEWED AND SIGNED. PRESCRIPTIONS TRANSMITTED TO PHARMACY AND INFORMATION SHEETS GIVEN. IV REMOVED. PATIENT DENIES ANY FURTHER NEEDS. PATIENT TAKEN BY WHEELCHAIR TO EXIT. LEFT WITH MOTHER.
--- NOTE | 2019-05-06 11:51 | EEG ---
[address] [address] EEG STUDY REPORT Name: JAK MCCARTNEY Room: [address] IN .R#: [id number] Admission: 04/24/19 Attend Phys: Geovany Acharya Discharge: 05/02/19 Date of : 64 Report #: [id number] THIS REPORT FOR: //name// CC: GARY physician/PCP Joe Aguirre DATE OF SERVICE: 04/30/2019 The patient is being evaluated for altered mental status. EEG was done by placing the electrodes by standard 10-20 system of electrode placement. Both referential and sequential montages were used for recording. Background activity in this patient's EEG goes up to about 8-9 Hz, but stays lower most of the time. It is intermixed with theta range slowing on both sides. The patient went to sleep and that is associated with bilateral slowing and vertex sharp waves. Throughout the record, no active epileptiform activity was noticed. IMPRESSION: This patient's EEG is intermixed with theta-range slowing on both sides. That is a nonspecific finding, which can occur with encephalopathy, effect of psychotropic medication, dementia, etc. Clinical correlation is recommended. <ELECTRONICALLY SIGNED> By: Tom Morales MD 05/06/19 1151 1350 1413Pletty Morales MD /nt
== END 2019-05-02 17:05 | disposition home health service (06) | DRG 871 ==
LOC: M.ERS 16:34 → M.TBA-ER 18:12 → M.ICU 18:12 → M.TBA-ER 21:02 → M.ICU 22:38 → M.2W 04-27 04:15 → M.3W 05-01 17:20
PROVIDERS: Emergency Medicine Emergency Medical Services; Family Medicine; Internal Medicine; Internal Medicine Cardiovascular Disease; Internal Medicine Pulmonary Disease; ADMIT Internal Medicine
PROC: 5A09357 Assistance with Respiratory Ventilation, Less than 24 Consecutive Hours, Continuous Positive Airway Pressure (ICD-10-PCS; 2019-04-24)
PROC: 0W993ZZ Drainage of Right Pleural Cavity, Percutaneous Approach (ICD-10-PCS; principal; 2019-04-25)
PROC: 5A09357 Assistance with Respiratory Ventilation, Less than 24 Consecutive Hours, Continuous Positive Airway Pressure (ICD-10-PCS; principal; 2019-04-25)
PROC: 5A09357 Assistance with Respiratory Ventilation, Less than 24 Consecutive Hours, Continuous Positive Airway Pressure (ICD-10-PCS; 2019-04-26)
DX: A41.89 Other specified sepsis (principal); J96.01 Acute respiratory failure with hypoxia; I21.4 Non-ST elevation (NSTEMI) myocardial infarction; I50.43 Acute on chronic combined systolic (congestive) and diastolic (congestive) heart failure; K85.20 Alcohol induced acute pancreatitis without necrosis or infection; G92 Toxic encephalopathy; J15.9 Unspecified bacterial pneumonia; J44.1 Chronic obstructive pulmonary disease with (acute) exacerbation; J90 Pleural effusion, not elsewhere classified; E87.2 Acidosis; K86.1 Other chronic pancreatitis; J44.0 Chronic obstructive pulmonary disease with (acute) lower respiratory infection; E44.1 Mild protein-calorie malnutrition; Z68.1 Body mass index [BMI] 19.9 or less, adult; J93.9 Pneumothorax, unspecified; E87.1 Hypo-osmolality and hyponatremia; I25.10 Atherosclerotic heart disease of native coronary artery without angina pectoris; E78.00 Pure hypercholesterolemia, unspecified; F32.9 Major depressive disorder, single episode, unspecified; G43.809 Other migraine, not intractable, without status migrainosus; F10.11 Alcohol abuse, in remission; I73.9 Peripheral vascular disease, unspecified; E78.5 Hyperlipidemia, unspecified; F17.210 Nicotine dependence, cigarettes, uncomplicated; I11.0 Hypertensive heart disease with heart failure; I27.20 Pulmonary hypertension, unspecified; I16.0 Hypertensive urgency; E80.6 Other disorders of bilirubin metabolism; E03.9 Hypothyroidism, unspecified; E87.6 Hypokalemia; A59.9 Trichomoniasis, unspecified; Z79.82 Long term (current) use of aspirin; Z90.710 Acquired absence of both cervix and uterus; Z79.899 Other long term (current) drug therapy; Z86.73 Personal history of transient ischemic attack (TIA), and cerebral infarction without residual deficits; Z95.5 Presence of coronary angioplasty implant and graft; Z23 Encounter for immunization; Z82.49 Family history of ischemic heart disease and other diseases of the circulatory system; Z80.9 Family history of malignant neoplasm, unspecified; I25.2 Old myocardial infarction; I25.5 Ischemic cardiomyopathy

== ENCOUNTER → 2019-05-24 | Outpatient (CLI) | payer MEDICARE, MEDICAID ==
[~2019-05-24] MED LIST changes: +ENTRESTO 49 MG1 EACH PO; +FOSINOPRIL 10 M10 M1 PO; +FUROSEMIDE 40 M40 M1 PO; +IPRAT-ALBUT 0.5-3 ML INH; +KLOR-CON M2020 MEQ PO; +LASIX 40 MG TAB40 MG PO; +LEVOTHYROXINE25 MCG PO; +NEBULIZER MISCELL; +PERFOROMIS20 MCG/2 M INH; +PREDNISONE 10 M10 MG PO; +SPIRONOLACTONE25 MG PO
[2019-05-24 12:33] LABS: ANION GAP 2 mmol/L (7-16); BUN 17 mg/dL (7-18); CHLORIDE 91 mmol/L (98-107); CHOLESTEROL 219 mg/dL (<200); CO2 34 mmol/L (21-32); CREATININE 1.2 mg/dL (0.6-1.3); GLUCOSE 458 mg/dL (70-99); HDL CHOLESTEROL 80 mg/dL (>40); LDL CHOLESTEROL 117 mg/dL (<100); NT-PRO BRAIN NAT PEPTIDE 1126 pg/mL (<300); SODIUM 127 mmol/L (136-145); TC:HDL 2.7 Ratio (Not establshd); TRIGLYCERIDE 111 mg/dL (<150); VLDL 22 mg/dL (<40)
[2019-05-24 12:35] LABS: SERUM ASSESSMENT Clear
--- NOTE | 2019-05-28 18:06 | CARDNUC ---
[place] [address] CARDIAC NUCLEAR IMAGING REPORT Name: JAK MCCARTNEY Room: [facility]#: [id number] Admission: 05/24/19 Attend Phys: Sandee Sanabria RN Discharge: Date of : 64 Date of Service: 05/28/19 1805 Report #: [id number] THIS REPORT FOR: cc: Radha JOSEPH A DO Biggs, F. Douglas MD [facility] ~ THIS REPORT FOR: //name// APPROVED REPORT Study performed: 05/24/2019 14:09:01 Indication: Fatigue Patient Location: Out-Patient Stress Tech: Danyelle Chavez Stress Nurse: Mavis Caicedo RN Ht: 5 ft 2 in Wt: 113 lbs BSA: 1.50 m2 BMI: 20.66 Medical History Medical History: CAD s/p stent, cardiomyopathy, chf, hyperlipidemia, hypertension, copd ef 30 Medications: asa-81, atorvastatin, carvedilol, prasugrel Allergies: No known drug allergies Cardiac Risk Factors: Age, Hyperlipidemia, HTN, Smoking Previous Cardiac Procedures: PCI Exercise History: Indeterminate Meds Held (24 hrs): carvedilol Resting Data Rest SPECT myocardial perfusion imaging was performed in supine position 30 minutes following the intravenous injection of 10.7 mCi of Tc-99m Sestamibi. Time of rest injection: 12:45 The images were gated to evaluate regional wall motion and calculate left ventricular ejection fraction. Administration Route: IV Administration Site: Right AC Pharmacologic Stress Pharmacologic stress test was performed by injecting Regadenoson 0.4 mg IV push over 10-15 seconds immediately followed by the intravenous injection of 34.1 mCi of Tc-99[place] [address] CARDIAC NUCLEAR IMAGING REPORT Name: JAK MCCARTNEY [facility] [id number] Admission: 05/24/19 Attend Phys: Sandee Sanabria RN Discharge: Date of : 64 Date of Service: 05/28/19 1805 Report #: [id number] Time of stress injection: 14:30 Administration Route: IV Administration Site: Right AC Heart Rate at time of stress injection: 108 bpm. Gated Stress SPECT was performed 45 minutes after stress injection. The images were gated to evaluate regional wall motion and calculate left ventricular ejection fraction. Prone imaging was performed. Stress Test Details Stress Test: Pharmacologic stress testing performed using 0.4 mg of regadenoson per 5 mL given IV over 10 seconds. Reason for pharmacologic stress test: physical limitation. HR Max Heart Rate (APMHR): 163 bpm Resting HR: 90 bpm Target HR (85% APMHR): 138 bpm Max HR Achieved: 110 bpm % of APMHR: 67 Recovery HR: 103 bpm HR response to stress: Normal HR response to stress BP Resting BP: 121/81 mmHg Max BP: 109/84 mmHg Recovery BP: 123/86 mmHg BP response to stress: Normal blood pressure response to stress. ECG Resting ECG: Sinus Rhythm, Anteroseptal AL pattern Stress ECG: Sinus Rhythm, , Anteroseptal AL pattern ST Change: ST Elevation in the area previously described anteroseptal infarct Maximum ST Deviation: 1 mm Arrhythmia: None Recovery ECG: Sinus Rhythm, Anteroseptal AL pattern Recovery ST Change: None Recovery ST Deviation: 0 mm Recovery Arrhythmia: None Clinical Reason for Termination: Completed protocol Exercise duration: 0 min sec Exercise capacity: 1 [place] [address] CARDIAC NUCLEAR IMAGING REPORT Name: JAK MCCARTNEY [facility] [id number] Admission: 05/24/19 Attend Phys: Sandee Sanabria RN Discharge: Date of : 64 Date of Service: 05/28/19 1805 Report #: [id number] consulted with Dr Morrison regarding st elevation in v1 and v2. He states that it looks like an old mi and it was okay to do test. pt tolerated test well Stress ECG Conclusion Normal hemodynamic response to pharmacologic stress. Non-diagnostic pharmacologic stress due to failure to attain target HR. The additional ST segment elevation in V1 and V2 is suspicious but not diagnostic. Study Quality Study: Good Artifact: Mild Soft tissue attenuation artifact Lung Uptake: Normal Study Data At rest, the left ventricular ejection fraction was 48%.. Post stress, the left ventricular ejection was 34%.. SSS: 15 SRS: 9 SDS: 6 TID = 1.11. Perfusion The resting study demonstrates a small to moderate-sized area of severe septal anterior and apical photopenia. That is a defect. The post stress images demonstrate a small mild anterior defect and a small mild septal defect as well as a moderate in size and severe intensity septal anterior apical defect prone images were obtained and demonstrate a moderate in size and severe intensity septal anterior apical defect as described above as well as a small mild septal defect and small mild anterior defect. These images demonstrate a gccssbau-bb-bcklqz area of ischemia in the septum anterior and apical area in the context of an old myocardial infarction in this area. There is mild more generalized anterior and septal ischemia as well. The ischemia is taye-infarctional but is extensive in the anterior and septal sims and mild to moderate in severity. Images were reviewed using [employer]. Wall Motion There is significant global hypokinesis with severe apical hypokinesis. The ejection fraction [place] [address] CARDIAC NUCLEAR IMAGING REPORT Name: JAK MCCARTNEY Room: [facility]#: [id number] Admission: 05/24/19 Attend Phys: Sandee Sanabria RN Discharge: Date of : 64 Date of Service: 05/28/19 1805 Report #: [id number] Nuclear Conclusion ECG Findings: non-diagnostic but suspicious Clinical Findings: negative for ischemia Nuclear Findings: positive for ischemia Exercise Capacity: not assessed Left Ventricular Function: abnormal Risk Study: high The Lexiscan Cardiolite study Cardiolite study demonstrates a significant old and/or apical and septal infarct with an extensive area of taye-infarction ischemia involving that area as well as the remaining septum and anterior wall. This is a high risk study. <Conclusion> Normal hemodynamic response to pharmacologic stress. Non-diagnostic pharmacologic stress due to failure to attain target HR. The additional ST segment elevation in V1 and V2 is suspicious but not diagnostic. <ELECTRONICALLY SIGNED> By: Xiao López MD, [facility] 05/28/19 180 04 04 Xiao López MD, FACC /INF
== END ==
LOC: M.NUC 05-09 07:43
PROVIDERS: Registered Nurse
DX: I25.10 Atherosclerotic heart disease of native coronary artery without angina pectoris (principal); I50.42 Chronic combined systolic (congestive) and diastolic (congestive) heart failure; E78.5 Hyperlipidemia, unspecified; I25.5 Ischemic cardiomyopathy

== ENCOUNTER → 2019-06-04 | Outpatient (CLI) | payer MEDICARE, MEDICAID ==
[2019-06-04 14:26] LABS: HEMATOCRIT 40.5 % (37.0-47.0); HEMOGLOBIN 13.6 gm/dL (12.0-15.0); MCH 24.8 pg (26.0-34.0); MCHC 33.6 g/dL (28.0-37.0); MCV 73.8 fL (80.0-100.0); RBC 5.49 mil/uL (4.20-5.00); RDW-CV 17.9 % (10.5-14.5); WBC 6.6 thou/uL (4.0-11.0)
[2019-06-04 14:38] LABS: CREATININE 1.4 mg/dL (0.6-1.3)
== END ==
LOC: M.LAB 14:04
PROVIDERS: Registered Nurse
DX: I25.5 Ischemic cardiomyopathy (principal); R42 Dizziness and giddiness

== ENCOUNTER 2019-07-30 21:55 | Inpatient (IN) | payer MEDICARE, MEDICAID ==
[~2019-07-30] VITALS: Ht 157.5 cm; Wt 53.1 kg
[2019-07-30 22:03] VITALS: BP 183/100
[2019-07-30 22:08] LABS: URINE BILIRUBIN NEGATIVE (Negative); URINE BLOOD NEGATIVE (Negative); URINE CLARITY CLEAR; URINE COLOR YELLOW; URINE GLUCOSE-RANDOM NEGATIVE (Negative); URINE KETONES NEGATIVE (Negative); URINE LEUKOCYTES-REFLEX NEGATIVE (Negative); URINE NITRITE-REFLEX NEGATIVE (Negative); URINE PROTEIN NEGATIVE (Negative); URINE SPECIFIC GRAVITY <= 1.005 (1.005-1.030); URINE UROBILINOGEN 0.2 E.U./dl (0.2-1.0)
[2019-07-30 22:21] LABS: ABSOLUTE BASOPHILS 0.1 thou/uL (0.0-0.2); ABSOLUTE EOSINOPHILS 0.1 thou/uL (0.0-0.7); ABSOLUTE LYMPHOCYTES 2.2 thou/uL (0.8-5.3); ABSOLUTE MONOCYTES 1.3 thou/uL (0.0-1.2); ABSOLUTE NEUTROPHILS 6.8 thou/uL (1.6-8.1); HEMATOCRIT 39.7 % (37.0-47.0); HEMOGLOBIN 13.7 gm/dL (12.0-15.0); LYMPHOCYTES 20.7 %; MCH 31.2 pg (26.0-34.0); MCHC 34.6 g/dL (28.0-37.0); MCV 90.1 fL (80.0-100.0); NUCLEATED RBCS 0 /100WBC; PLATELET COUNT* 236 thou/uL (150-400); POLYS 65.3 %; RDW-CV 17.9 % (10.5-14.5); WBC 10.4 thou/uL (4.0-11.0)
[2019-07-30 22:29] LABS: CALCIUM 8.6 mg/dL (8.5-10.1); CREATININE 1.1 mg/dL (0.6-1.3); POTASSIUM 3.3 mmol/L (3.5-5.1)
[2019-07-30 22:33] LABS: ALBUMIN 3.9 g/dL (3.4-5.0); TOTAL PROTEIN 7.4 g/dL (6.4-8.2)
[2019-07-30 22:52] LABS: MAGNESIUM 1.5 mg/dL (1.8-2.4)
[2019-07-31 00:27] VITALS: BP 159/74
[2019-07-31 00:45] VITALS: BP 152/88
[2019-07-31 02:41] LABS: AMP/METHAMP Negative (Negative); BARBITURATES Negative (Negative); BENZODIAZEPINES Negative (Negative); COCAINE Negative (Negative); METHADONE Negative (Negative); OPIATES Negative (Negative); PCP Negative (Negative); THC Negative (Negative)
[2019-07-31 04:00] VITALS: BP 106/59
[2019-07-31 09:41] LABS: CALCIUM 8.5 mg/dL (8.5-10.1); PHOSPHORUS* 3.8 mg/dL (2.5-4.9); TROPONIN-I LEVEL <0.06 ng/mL (<0.06)
[2019-07-31 09:42] LABS: AMMONIA < 10 umol/L (11-32)
--- NOTE | 2019-07-31 10:48 | EKG ---
[place] [address] ELECTROCARDIOGRAM REPORT Name: JAK MCCARTNEY Room: [address] IN .R.#: [id number] Admission: 07/30/19 Attend Phys: Crow Alvarado, Discharge: Date of : 64 Date of Service: 07/30/192205 Report #: [id number] THIS REPORT FOR: //name// [facility] ED Test Date: 2019-07-30 Test Time: 22:06:20 Pat Name: JAK MCCARTNEY Department: Room: [facility] Gender: F Furniture Associate: [place] : 1960 Requested By: Eugenia Cristina Order Number: [id number] MD: Dale Morrison Measurements Intervals [place] Rate: 110 P: 45 CT: 138 QRS: -5 QRSD: 83 T: 100 QT: 399 QTc: 540 Interpretive Statements Sinus tachycardia Abnormal R-wave progression, early transition Probable LVH with secondary repol abnrm Anterior Q waves, possibly due to LVH Prolonged QT interval Compared to ECG 05/28/2019 08:56:21 Left ventricular hypertrophy now present Prolonged QT interval now present Sinus rhythm no longer present anterior st elevation no longer noted Electronically Signed On 07-31-2019 10:46:47 CDT by Dale Morrison [email or web address] <ELECTRONICALLY SIGNED> By: Dale Morrison MD, [facility] 07/31/19 1046 05 05 Dale Morrison MD, [facility] /EPI
--- NOTE | 2019-07-31 14:12 | CON ---
[address] [address] CONSULTATION Name: JAK MCCARTNEY Room: [address] IN .R.#: [id number] Admission: 07/30/19 Attend Phys: Crow Alvarado MD Discharge: Date of : 64 Report #: [id number] THIS REPORT FOR: //name// cc: Radha JOSEPH A DO THIS REPORT FOR: //name// CC: Radha Mancia DO DATE OF SERVICE: 07/31/2019 CARDIOLOGY CONSULTATION HISTORY OF PRESENT ILLNESS: The patient is a 59-year-old single white female who came to the hospital yesterday complaining of nausea and vomiting. The patient has an extensive past medical history. Apparently, her first stent was placed in 2005. She presented here to [facility] and was transferred to [facility] where the stent was placed. She has had multiple stents since that time including in [place], [place] as well as [place]. Her last stent was about 3 years ago here at [facility]. She then presented to [facility] on 05/27 of this year when she suddenly had a pain in her chest, became diaphoretic, nauseated. She took nitroglycerin and was brought here to [facility] by private vehicle. Her ECG on admission showed ST segment elevation in V1 through V4 consistent with acute STEMI. I took her urgently to the cardiac catheterization lab and performed an angiogram from her right femoral artery. Results showed complete occlusion of the stent in the proximal LAD. There is a 70% stenosis stent in the mid circumflex artery and a 40% restenosis stent in the right coronary artery. There was difficulty wiring of the LAD because of its abnormal takeoff from the left main artery and the presence of multiple previous stents. I was able to place a new drug-eluting stent in the proximal LAD, although there was residual 30% narrowing suggesting the previous stent had been under deployed. Her echocardiogram at that time suggested an ejection fraction of 40%. She returned to see my nurse practitioner in May. At that time, her blood pressure was low and she was taken off of Entresto and Aldactone. Recently, she denies any significant chest pain, shortness of breath. She notes occasional irregular heartbeat, but no syncope or edema. She was brought to the Emergency Room yesterday by private vehicle. She noticed some epigastric discomfort, dry heaves. She had drank about a half a pint of alcohol recently. She denied any blood in her stool. She is admitted for further evaluation and treatment. PAST MEDICAL HISTORY: Otherwise significant for tonsillectomy, hysterectomy, hypertension, [place] [address] CONSULTATION Name: JAK MCCARTNEY Room: [address] IN [facility].#: [id number] Admission: 07/30/19 Attend Phys: Crow Alvarado MD Discharge: Date of : 64 Report #: [id number] CURRENT MEDICATIONS: Consist of aspirin, Lipitor, carvedilol, nebulized treatment, Lasix as needed, Synthroid, Effient. ALLERGIES: She has no known drug allergies. FAMILY HISTORY: Her father had heart disease. SOCIAL HISTORY: She is , lives with her mother in [place]. Smokes half pack of cigarettes a day. She is . She has a history of alcohol abuse, used to drink half a pint of whiskey a day. No illicit drug use. REVIEW OF SYSTEMS: No history of stroke. She has COPD. No history of liver disease, kidney disease. She wears glasses. Skin cancer removed. No psychiatric illness. PHYSICAL EXAMINATION: GENERAL: Revealed a middle-aged female lying in bed. She appeared in no acute distress. VITAL SIGNS: She had a blood pressure of 110/60, pulse is 90. She is afebrile. HEENT: She was anicteric. Conjunctivae are pink. Mucous membranes moist. NECK: Veins nondistended. No carotid bruits. CHEST: Clear to auscultation. CARDIOVASCULAR: Regular rate and rhythm. ABDOMEN: Soft. EXTREMITIES: Had no edema. SKIN: Cool and dry. NEUROLOGIC: Nonfocal. RADIOLOGICAL DATA: Her ECG on admission showed a sinus rhythm with nonspecific T-wave changes. Her workup in the Emergency Room yesterday, she had a portable chest x-ray that showed normal heart size and clear lung tejeda, minimal atelectasis. LABORATORY DATA: Sodium 131, potassium 3.3, BUN of 8, creatinine 1.1. Lipase 1219, SGOT 18, bilirubin 1.0, SGPT 25. Troponin was 0.06. Her white blood cell count is 10.4, hemoglobin 13.7. IMPRESSION AND RECOMMENDATIONS: 1. Pancreatitis. I would change diet to clear liquids only. 2. Recent coronary stent. The patient is on aspirin and Effient. 3. Cardiomyopathy. The patient is on beta ramiro. She is no longer on an ARB and BARBARA inhibitor because of low blood pressure. 4. Tobacco abuse. 5. [place] [address] CONSULTATION Name: JAK MCCARTNEY Room: [address] IN ..#: [id number] Admission: 07/30/19 Attend Phys: Crow Alvarado MD Discharge: Date of : 64 Report #: [id number] 6. Alcohol abuse. 7. Previous history of pancreatitis. <ELECTRONICALLY SIGNED> By: Dale Morrison MD, FACC 07/31/19 1412 0925 [id number] Morrison MD, FACC /nt
[2019-07-31 16:37] VITALS: BP 120/61
[2019-07-31 20:00] VITALS: BP 128/75
[2019-08-01 00:15] VITALS: BP 97/55
[2019-08-01 04:48] LABS: HEMATOCRIT 30.8 % (37.0-47.0); MCHC 34.4 g/dL (28.0-37.0); MCV 92.9 fL (80.0-100.0); MPV 7.2 fl. (7.2-11.1); RBC 3.32 mil/uL (4.20-5.00); RDW-CV 16.7 % (10.5-14.5)
[2019-08-01 04:57] LABS: HEMOGLOBIN 10.6 gm/dL (12.0-15.0)
[2019-08-01 05:04] LABS: CALCIUM 8.1 mg/dL (8.5-10.1); CREATININE 0.8 mg/dL (0.6-1.3); MAGNESIUM 1.8 mg/dL (1.8-2.4); POTASSIUM 3.3 mmol/L (3.5-5.1)
[2019-08-01 08:05] VITALS: BP 140/90
[2019-08-01 16:04] VITALS: BP 157/95
[2019-08-01 19:58] VITALS: BP 180/98
[2019-08-01 23:59] VITALS: BP 155/90
[2019-08-02 04:42] LABS: CALCIUM 8.6 mg/dL (8.5-10.1); CREATININE 0.9 mg/dL (0.6-1.3); MAGNESIUM 1.8 mg/dL (1.8-2.4); PHOSPHORUS* 3.6 mg/dL (2.5-4.9); POTASSIUM 3.6 mmol/L (3.5-5.1)
[2019-08-02 08:52] VITALS: BP 155/90
[2019-08-02 09:59] VITALS: BP 160/94
--- NOTE | 2019-08-16 11:09 | H ---
[place] [address] HISTORY AND PHYSICAL Name: JAK MCCARTNEY Room: [address] IN .R.#: [id number] Admission: 07/30/19 Attend Phys: Crow Alvarado MD Discharge: 08/02/19 Date of : 64 Report #: [id number] THIS REPORT FOR: //name// cc: Radha JOSEPH A DO ~ THIS REPORT FOR: //name// CC: Radha Alvarado DATE OF SERVICE: 07/31/2019 REASON FOR CONSULTATION: Epigastric pain. HISTORY OF PRESENT ILLNESS: This is a 59-year-old female with history of intermittent abdominal pain and recurrent pancreatitis, mainly due to alcoholism. The patient continues to drink. She reports that her pain was severe and was epigastric in origin. She also had some nausea, which prompted her to come to the hospital. She denies any fever, chills and believes that her pain has subsided since she was admitted. She has been receiving IV hydration and pain control. The patient's last endoscopic evaluation was in 2016. At that time, the patient had some antral erosions, which was secondary to chemical gastritis. She also had some hemorrhoids and diverticulosis. Since admission, she also had abdominal ultrasound, which was essentially negative for biliary ductal dilatation or gallbladder disease. Her LFTs and bilirubin are within normal limits. Her lipase upon admission was 1295. PAST MEDICAL HISTORY: Significant for history of recurrent pancreatitis, coronary artery disease, COPD, diabetes mellitus, history of GA, CVA, pneumonia, pericardial effusion, electrolyte imbalance, and alcoholism. ALLERGIES: No known drug allergy. MEDICATIONS: Please refer to MAR. SOCIAL HISTORY: The patient lives at home, has a long history of alcoholism and admits that she continues to drink. FAMILY HISTORY: Noncontributory. ASSESSMENT AND PLAN: The patient with acute epigastric pain and elevated lipase and history of alcoholic pancreatitis in the past, who has negative finding on the ultrasound for possibility of biliary induced pancreatitis. [place] [address] HISTORY AND PHYSICAL Name: JAK MCCARTNEY Room: [address] IN [facility]#: [id number] Admission: 07/30/19 Attend Phys: Crow Alvarado MD Discharge: 08/02/19 Date of : 64 Report #: [id number] had upper scope 3 years ago, which was significant for chemical gastritis. Her pain has subsided as she has been hydrated. I will give her low fat diet and check her lipase tomorrow. If her lipase has remained within normal limits and she does complain of pain, we will consider upper endoscopy. If her pain resolves, then she may be discharged. <ELECTRONICALLY SIGNED> By: Stephanie Meraz MD 08/16/19 1109 1418 1438Stephanie Meraz MD /hitesh
== END 2019-08-02 11:38 | disposition home or self-care (01) | DRG 439 ==
LOC: M.ERS 21:55 → M.2W 23:12 → M.TBA-ER 23:12 → M.2W 23:55
PROVIDERS: Emergency Medicine; Internal Medicine; ADMIT Internal Medicine; ATTEND Internal Medicine
DX: K85.20 Alcohol induced acute pancreatitis without necrosis or infection (principal); R65.10 Systemic inflammatory response syndrome (SIRS) of non-infectious origin without acute organ dysfunction; E87.1 Hypo-osmolality and hyponatremia; I42.9 Cardiomyopathy, unspecified; I25.10 Atherosclerotic heart disease of native coronary artery without angina pectoris; I10 Essential (primary) hypertension; E78.00 Pure hypercholesterolemia, unspecified; F32.9 Major depressive disorder, single episode, unspecified; G43.909 Migraine, unspecified, not intractable, without status migrainosus; E87.6 Hypokalemia; J44.9 Chronic obstructive pulmonary disease, unspecified; F17.210 Nicotine dependence, cigarettes, uncomplicated; E83.42 Hypomagnesemia; Z82.49 Family history of ischemic heart disease and other diseases of the circulatory system; I25.2 Old myocardial infarction; Z90.710 Acquired absence of both cervix and uterus; Z79.899 Other long term (current) drug therapy

== ENCOUNTER 2019-11-14 05:04 | Emergency (ER) | payer MEDICARE, MEDICAID ==
[~2019-11-14] VITALS: Ht 157.5 cm; Wt 52.2 kg
[2019-11-14 05:44] LABS: HEMATOCRIT 35.6 % (37.0-47.0); HEMOGLOBIN 12.2 gm/dL (12.0-15.0); MCH 31.5 pg (26.0-34.0); MCHC 34.2 g/dL (28.0-37.0); MCV 92.2 fL (80.0-100.0); MPV 7.2 fl. (7.2-11.1); RBC 3.86 mil/uL (4.20-5.00); RDW-CV 16.3 % (10.5-14.5); WBC 6.5 thou/uL (4.0-11.0)
[2019-11-14 05:52] LABS: CREATININE 1.2 mg/dL (0.6-1.3); POTASSIUM 3.7 mmol/L (3.5-5.1)
[2019-11-14 05:56] LABS: ALBUMIN 3.5 g/dL (3.4-5.0); TOTAL BILIRUBIN 0.7 mg/dL (<0.1-1.0); TOTAL PROTEIN 6.7 g/dL (6.4-8.2)
[2019-11-14 07:57] VITALS: BP 136/63
[2019-11-14 08:07] LABS: URINE BILIRUBIN NEGATIVE (Negative); URINE BLOOD NEGATIVE (Negative); URINE CLARITY CLEAR; URINE COLOR YELLOW; URINE GLUCOSE-RANDOM NEGATIVE (Negative); URINE KETONES 1+ (Negative); URINE LEUKOCYTES-REFLEX 2+ (Negative); URINE NITRITE-REFLEX POSITIVE (Negative); URINE PROTEIN NEGATIVE (Negative); URINE SPECIFIC GRAVITY 1.015 (1.005-1.030); URINE UROBILINOGEN 0.2 E.U./dl (0.2-1.0)
[2019-11-14 08:10] LABS: BACTERIA-REFLEX >30 Many /HPF (None Seen); MUCUS 0-3 Light strn/LPF (None Seen); SQUAMOUS 0-3 Few /LPF (0-3); URINE RBC 0-2 Rare /HPF (0-2); URINE WBC-REFLEX >25 Many /HPF (0-5)
[2019-11-14 08:11] LABS: CASTS None Seen /LPF (None Seen); CRYSTALS None Seen /LPF (None Seen)
== END 2019-11-14 07:58 | disposition home or self-care (01) ==
LOC: M.ERS 05:04
PROVIDERS: Personal Emergency Response Attendant
DX: S01.81XA Laceration without foreign body of other part of head, initial encounter (principal); I10 Essential (primary) hypertension; I25.10 Atherosclerotic heart disease of native coronary artery without angina pectoris; E78.00 Pure hypercholesterolemia, unspecified; G43.909 Migraine, unspecified, not intractable, without status migrainosus; F32.9 Major depressive disorder, single episode, unspecified; F17.210 Nicotine dependence, cigarettes, uncomplicated; Z90.710 Acquired absence of both cervix and uterus; W18.39XA Other fall on same level, initial encounter; Y93.89 Activity, other specified; Y92.89 Other specified places as the place of occurrence of the external cause; Y99.8 Other external cause status